=== PATIENT | male | born 1970 | race Caucasian/White ===

== ENCOUNTER 2018-09-03 16:44 | Observation (INO) ==
--- NOTE | 2018-09-03 17:20 | Emergency Department Note ---
Disposition Clinical Impression: Rectal bleeding Disposition: Admitted As Inpatient Condition: Good Time of Disposition: 19:13 General Adult HPI - General Chief complaint: ED GI Bleed Stated complaint: rectal bleeding Time Seen by Provider: 09/03/18 16:56 Source: patient, family Mode of arrival: ambulatory Limitations: no limitations Nursing Notes Reviewed: Yes Vital Signs Reviewed: Yes - History of Present Illness HPI Narrative: Patient is a 48-year-old presents the emergency department with reports of blood per rectum. Patient states that around 1400 today he was having a bowel movement and noticed a large amount of blood in the toilet. Patient states that it was bright red blood. Patient states that it was blood that ended up running down his legs to his feet. Patient states that he had 2 episodes of this. Patient states that he has feelings of lightheaded and dizziness. Patient states that he has had this one other time however he has not been seen for this. Patient states that it was short-lived and resolved. Patient states that he does have a history of hemorrhoids but has never been treated for them. Pain Scale: 2 - Related Data Home Medications Medication Instructions Recorded Confirmed Atenolol [Tenormin] 50 mg PO DAILY 07/14/15 07/14/15 BuPROPion [Wellbutrin] 450 mg PO DAILY 07/14/15 07/14/15 Cyclobenzaprine [Flexeril] 10 mg PO TID PRN 07/14/15 07/14/15 Diltiazem [Cardizem] 240 mg PO DAILY 07/14/15 07/14/15 Oxycodone HCl/Acetaminophen 1 each PO TID PRN 07/14/15 07/14/15 [Percocet 7.5-325 mg Tablet] Pantoprazole Sodium [Protonix] 20 mg PO DAILY 07/14/15 07/14/15 Previous Rx's Medication Instructions Recorded Ciprofloxacin [Cipro] 500 mg PO BID #20 tablet 01/13/18 Phenazopyridine HCl [Pyridium] 200 mg PO TIDAC #30 tab 01/13/18 Promethazine [Phenergan] 25 mg PO Q6HR PRN #15 tablet 01/13/18 Allergies Allergy/AdvReac Type Severity Reaction Status Date / Time No Known Allergies Allergy Verified 01/13/18 21:36 All systems ED: reviewed and negative except as stated. Cardiovascular: Denies: chest pain Respiratory: Denies: dyspnea Gastrointestinal: Denies: abdominal pain Neurological: Reports: other (Lightheaded ) Past Medical History - Past Medical History Medical history: Reports: diabetes, hypertension, other (Muscular Dystrophy) Surgical history: Reports: appendectomy Psychiatric history: Reports: depression - Social History Smoking Status: Never smoker Smokeless Tobacco Status: No Alcohol use: Reports: none Drug use: Reports: none Physical Exam - General Limitations: no limitations General appearance: alert, in no apparent distress - Head Head exam: atraumatic, normocephalic - Neck Neck exam: Present: normal inspection, full ROM, trachea midline - Respiratory Respiratory exam: Present: normal lung sounds bilaterally. Absent: respiratory distress, wheezes - Cardiovascular Cardiovascular exam: Present: regular rate, normal rhythm, normal heart sounds, +S1, +S2 - Abdominal Exam Abdominal exam: Present: soft, Non-Tender, normal bowel sounds - Rectal Exam Postmaster Relief present during exam: Yes Rectal exam: Present: normal inspection, normal rectal tone, hemorrhoids ( External non-bleeding ). Absent: bloody stool, fecal impaction, mass, tenderness - Neurological Exam Neurological exam: Present: alert, oriented X3 - Psychiatric Psychiatric exam: Present: normal affect, normal mood - Skin Skin exam: Present: warm, dry, intact Course Vital Signs Temperature 98.7 F 09/03/18 16:46 Pulse Rate 82 09/03/18 16:46 Respiratory Rate 20 09/03/18 16:46 Blood Pressure 149/82 09/03/18 16:46 O2 Sat by Pulse Oximetry 97 09/03/18 16:46 Temperature 98.9 F 09/03/18 17:03 Pulse Rate 85 09/03/18 17:03 Respiratory Rate 15 09/03/18 17:03 Blood Pressure 123/74 09/03/18 17:03 O2 Sat by Pulse Oximetry 99 09/03/18 17:03 Oxygen Delivery Oxygen Delivery Room Air Medical Decision Making - MDM Narrative Medical decision making narrative: Due the patient presenting to the emergency department with reports of rectal bleeding we will obtain basic laboratory testing a bedside stool occult and a type and screen. Patient seemed well but is stable at this time. [facility] laboratory testing is relatively unremarkable. The stool occult was positive. The patient does not have any active bleeding at this time and there is no gross blood on exam. However after discussion with the patient he is feeling uncomfortable with going home at this time due to the large amount of blood that he passed per rectum. I feel that it is reasonable for this patient to be admitted to the hospital for further evaluation and management of his rectal bleeding. Called spoke the admitting hospitalist Dr. Herrera and he is accepted the patient to their service. Patient be admitted to the hospital this time for further evaluation and management. - Medical Records Medical records reviewed: Yes I reviewed the patient's medical records. - Lab Data Lab results reviewed: Yes I reviewed the patient's lab results. Result diagrams: 09/03/18 17:33 09/03/18 17:33 Lab Results 09/03/18 09/03/18 09/03/18 Range/Units 17:15 17:33 17:33 WBC 4.3 (4.3-11.1) K/mcL RBC 4.83 (4.19-5.50) M/mcL Hgb 13.9 (12.9-16.9) g/dL Hct 39.2 (37.5-50.1) % MCV 81.2 L (83.0-100.0) fL MCH 28.8 (28.0-33.3) pg MCHC 35.5 (31.6-35.5) g/dL RDW 13.4 (11.5-14.5) % Plt Count 122 L (140-400) K/mcL MPV 9.6 (9.4-12.4) fL Immature Gran % 0.0 (0-4) % Seg Neutrophils % 61.6 % Lymphocytes % 25.8 % Monocytes % 8.4 % Eosinophils % 3.0 % Basophils % 1.2 % Neutrophils # 2.7 (1.6-8.9) K/mcL Lymphocytes # 1.1 (0.6-4.6) K/mcL Monocytes # 0.4 (0.0-1.3) K/mcL Eosinophils # 0.1 (0.0-0.6) K/mcL Basophils # 0.1 (0.0-0.2) K/mcL PT 15.1 H (9.4-12.1) Seconds INR 1.3 APTT 38.8 H (26.0-36.0) Seconds Sodium (136-145) mEq/L Potassium (3.5-5.1) mEq/L Chloride (98-107) mEq/L Carbon Dioxide (23-29) mEq/L BUN (6-20) mg/dL Creatinine (0.70-1.30) mg/dL Est GFR ( Amer) (> 60) Est GFR (Non-Af Amer) (> 60) BUN/Creatinine Ratio (6-26) Glucose (70-105) mg/dL Calculated Osmolality (280-300) Calcium (8.6-10.3) mg/dL Stool Occult Bld Scrn Positive A (Negative) Blood Type Antibody Screen 09/03/18 09/03/18 Range/Units 17:33 17:33 WBC (4.3-11.1) K/mcL RBC (4.19-5.50) M/mcL Hgb (12.9-16.9) g/dL Hct (37.5-50.1) % MCV (83.0-100.0) fL MCH (28.0-33.3) pg MCHC (31.6-35.5) g/dL RDW (11.5-14.5) % Plt Count (140-400) K/mcL MPV (9.4-12.4) fL Immature Gran % (0-4) % Seg Neutrophils % % Lymphocytes % % Monocytes % % Eosinophils % % Basophils % % Neutrophils # (1.6-8.9) K/mcL Lymphocytes # (0.6-4.6) K/mcL Monocytes # (0.0-1.3) K/mcL Eosinophils # (0.0-0.6) K/mcL Basophils # (0.0-0.2) K/mcL PT (9.4-12.1) Seconds INR APTT (26.0-36.0) Seconds Sodium 136 (136-145) mEq/L Potassium 3.5 (3.5-5.1) mEq/L Chloride 105 (98-107) mEq/L Carbon Dioxide 23 (23-29) mEq/L BUN 12 (6-20) mg/dL Creatinine 0.51 L (0.70-1.30) mg/dL Est GFR ( Amer) > 60 (> 60) Est GFR (Non-Af Amer) > 60 (> 60) BUN/Creatinine Ratio 24 (6-26) Glucose 276 H (70-105) mg/dL Calculated Osmolality 292 (280-300) Calcium 9.1 (8.6-10.3) mg/dL Stool Occult Bld Scrn (Negative) Blood Type A POSITIVE Antibody Screen NEGATIVE - Radiology Data Radiology results reviewed: Yes I reviewed the patient's radiology results. - EKG Data EKG #1 EKG attestation: Yes I reviewed and interpreted this EKG. EKG results narrative: EKG shows a sinus rhythm and rate of 70 beats from it, UT interval of 16 and contractures 101, QTC of 454. The shunt evidence of STEMI on EKG.
--- NOTE | 2018-09-03 17:31 | Emergency Department Note ---
Disposition Clinical Impression: Rectal bleeding Disposition: Admitted As Inpatient Condition: Good Referrals: Rod Sheth DO [Primary Care Provider] - Forms: ED Satisfaction Letter General Adult HPI - General Chief complaint: ED GI Bleed Stated complaint: rectal bleeding Time Seen by Provider: 09/03/18 16:56 Source: patient, family Mode of arrival: ambulatory Limitations: no limitations - History of Present Illness Pain Scale: 2 - Related Data Home Medications Medication Instructions Recorded Confirmed Atenolol [Tenormin] 50 mg PO DAILY 07/14/15 07/14/15 BuPROPion [Wellbutrin] 450 mg PO DAILY 07/14/15 07/14/15 Cyclobenzaprine [Flexeril] 10 mg PO TID PRN 07/14/15 07/14/15 Diltiazem [Cardizem] 240 mg PO DAILY 07/14/15 07/14/15 Oxycodone HCl/Acetaminophen 1 each PO TID PRN 07/14/15 07/14/15 [Percocet 7.5-325 mg Tablet] Pantoprazole Sodium [Protonix] 20 mg PO DAILY 07/14/15 07/14/15 Previous Rx's Medication Instructions Recorded Ciprofloxacin [Cipro] 500 mg PO BID #20 tablet 01/13/18 Phenazopyridine HCl [Pyridium] 200 mg PO TIDAC #30 tab 01/13/18 Promethazine [Phenergan] 25 mg PO Q6HR PRN #15 tablet 01/13/18 Allergies Allergy/AdvReac Type Severity Reaction Status Date / Time No Known Allergies Allergy Verified 01/13/18 21:36 Cardiovascular: Denies: chest pain Respiratory: Denies: dyspnea Gastrointestinal: Denies: abdominal pain Neurological: Reports: other (Lightheaded ) Past Medical History - Past Medical History Medical history: Reports: diabetes, hypertension, other (Muscular Dystrophy) Surgical history: Reports: appendectomy Psychiatric history: Reports: depression - Social History Smoking Status: Never smoker Smokeless Tobacco Status: No Alcohol use: Reports: none Drug use: Reports: none Physical Exam - General Limitations: no limitations General appearance: alert, in no apparent distress Course Vital Signs Temperature 98.7 F 09/03/18 16:46 Pulse Rate 82 09/03/18 16:46 Respiratory Rate 20 09/03/18 16:46 Blood Pressure 149/82 09/03/18 16:46 O2 Sat by Pulse Oximetry 97 09/03/18 16:46 Temperature 98.9 F 09/03/18 17:03 Pulse Rate 81 09/03/18 19:15 Respiratory Rate 18 09/03/18 19:15 Blood Pressure 118/69 09/03/18 19:15 O2 Sat by Pulse Oximetry 98 09/03/18 19:15 Oxygen Delivery Oxygen Delivery Room Air Medical Decision Making - Lab Data Result diagrams: 09/03/18 17:33 09/03/18 17:33 Lab Results 09/03/18 09/03/18 09/03/18 Range/Units 17:15 17:33 17:33 WBC 4.3 (4.3-11.1) K/mcL RBC 4.83 (4.19-5.50) M/mcL Hgb 13.9 (12.9-16.9) g/dL Hct 39.2 (37.5-50.1) % MCV 81.2 L (83.0-100.0) fL MCH 28.8 (28.0-33.3) pg MCHC 35.5 (31.6-35.5) g/dL RDW 13.4 (11.5-14.5) % Plt Count 122 L (140-400) K/mcL MPV 9.6 (9.4-12.4) fL Immature Gran % 0.0 (0-4) % Seg Neutrophils % 61.6 % Lymphocytes % 25.8 % Monocytes % 8.4 % Eosinophils % 3.0 % Basophils % 1.2 % Neutrophils # 2.7 (1.6-8.9) K/mcL Lymphocytes # 1.1 (0.6-4.6) K/mcL Monocytes # 0.4 (0.0-1.3) K/mcL Eosinophils # 0.1 (0.0-0.6) K/mcL Basophils # 0.1 (0.0-0.2) K/mcL PT 15.1 H (9.4-12.1) Seconds INR 1.3 APTT 38.8 H (26.0-36.0) Seconds Sodium (136-145) mEq/L Potassium (3.5-5.1) mEq/L Chloride (98-107) mEq/L Carbon Dioxide (23-29) mEq/L BUN (6-20) mg/dL Creatinine (0.70-1.30) mg/dL Est GFR ( Amer) (> 60) Est GFR (Non-Af Amer) (> 60) BUN/Creatinine Ratio (6-26) Glucose (70-105) mg/dL Calculated Osmolality (280-300) Calcium (8.6-10.3) mg/dL Stool Occult Bld Scrn Positive A (Negative) Blood Type Antibody Screen 09/03/18 09/03/18 Range/Units 17:33 17:33 WBC (4.3-11.1) K/mcL RBC (4.19-5.50) M/mcL Hgb (12.9-16.9) g/dL Hct (37.5-50.1) % MCV (83.0-100.0) fL MCH (28.0-33.3) pg MCHC (31.6-35.5) g/dL RDW (11.5-14.5) % Plt Count (140-400) K/mcL MPV (9.4-12.4) fL Immature Gran % (0-4) % Seg Neutrophils % % Lymphocytes % % Monocytes % % Eosinophils % % Basophils % % Neutrophils # (1.6-8.9) K/mcL Lymphocytes # (0.6-4.6) K/mcL Monocytes # (0.0-1.3) K/mcL Eosinophils # (0.0-0.6) K/mcL Basophils # (0.0-0.2) K/mcL PT (9.4-12.1) Seconds INR APTT (26.0-36.0) Seconds Sodium 136 (136-145) mEq/L Potassium 3.5 (3.5-5.1) mEq/L Chloride 105 (98-107) mEq/L Carbon Dioxide 23 (23-29) mEq/L BUN 12 (6-20) mg/dL Creatinine 0.51 L (0.70-1.30) mg/dL Est GFR ( Amer) > 60 (> 60) Est GFR (Non-Af Amer) > 60 (> 60) BUN/Creatinine Ratio 24 (6-26) Glucose 276 H (70-105) mg/dL Calculated Osmolality 292 (280-300) Calcium 9.1 (8.6-10.3) mg/dL Stool Occult Bld Scrn (Negative) Blood Type A POSITIVE Antibody Screen NEGATIVE Attestation Statement - Attestation Attestation: I examined this patient and my medical decision-making was reviewed with the Resident Physician. I agree with the documented findings, disposition and treatment plan as described except to the extent set forth below. Patient presents to the ED with a chief complaint of rectal bleeding. Onset this afternoon. Patient states it was a large amount of blood in the toilet. States he was running and is laying on the floor. No history of similar. 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 On exam he is awake and alert sitting up in bed in no acute distress. His abdomen is soft. Heart is regular. He is not tachycardic. Blood pressure stable. Plan. H&H. Type and cross. We will monitor. Patient's hemoglobin is 13. This is 1 g drop from the last check a couple days ago. Patient states he would prefer to be admitted as he is concern to go home with as much blood as he lost. Contacting hospitalist.
[2018-09-03 17:49] LABS: Basophils # 0.1 K/mcL (0.0-0.2); Basophils % 1.2 %; Eosinophils # 0.1 K/mcL (0.0-0.6); Hematocrit 39.2 % (37.5-50.1); Hemoglobin 13.9 g/dL (12.9-16.9); Lymphocytes # 1.1 K/mcL (0.6-4.6); Lymphocytes % 25.8 %; Mean Corpuscular HGB Conc 35.5 g/dL (31.6-35.5); Mean Corpuscular Hemoglobin 28.8 pg (28.0-33.3); Mean Corpuscular Volume 81.2 fL (83.0-100.0); Mean Platelet Volume 9.6 fL (9.4-12.4); Monocytes # 0.4 K/mcL (0.0-1.3); Monocytes % 8.4 %; Neutrophils # 2.7 K/mcL (1.6-8.9); Platelet Count 122 K/mcL (140-400); Red Blood Count 4.83 M/mcL (4.19-5.50); Red Cell Distribution Width 13.4 % (11.5-14.5); Segmented Neutrophils % 61.6 %
[2018-09-03 17:58] LABS: INR 1.3; Prothrombin Time 15.1 Seconds (9.4-12.1)
[2018-09-03 18:01] LABS: Activated Partial Thrombo Time 38.8 Seconds (26.0-36.0)
[2018-09-03 18:11] LABS: BUN/Creatinine Ratio 24 (6-26); Blood Urea Nitrogen 12 mg/dL (6-20); Calcium 9.1 mg/dL (8.6-10.3); Carbon Dioxide 23 mEq/L (23-29); Chloride 105 mEq/L (98-107); Glucose 276 mg/dL (70-105); Osmolality,Calculated 292 (280-300); Potassium 3.5 mEq/L (3.5-5.1); Sodium 136 mEq/L (136-145); eGFR For Non-African Americans > 60 (> 60)
[2018-09-03] MEDS ORDERED: Naloxone 0.4 MG/ML INJ IVP PRN (20:36)
[2018-09-03] MEDS ORDERED: *HR* Dextrose 50 % in Water (Syg) 50 ML SYRINGE IVP PRN (20:38)
[2018-09-03] MEDS ORDERED: D5% in Water 1,000 ML IVC PRN (20:38)
[2018-09-03] MEDS ORDERED: Dextrose Gel 15 GM/37.5 ML TUBE PO PRN ×2 (20:38)
--- NOTE | 2018-09-03 20:42 | Internal Med History&Physical ---
<Yosef Bueno - Last Filed: 09/03/18 21:53> Date of Encounter: 09/03/18 Time of Encounter: 20:40 Internal Medicine - H&P: HPI Chief complaint: Blood Bowel Movement Admitted From: Emergency Dept History of present illness: Mr. Frye is a 48 year old male presenting with 2 episodes of blood bowel movements today with history of muscular dystrophy, cardiomyopathy, HTN, DM. He was urinating around 2PM this afternoon when he felt blood dripping down his legs and realized it was blood. He then had a bowel movement filling the whole toilet bowl with blood. At 3 PM he defecated again filling the whole toilet bowl with blood. Blood is described as bright red with clots. He states that this happened 2 weeks ago but did not fill the toilet bowl with blood. Before that episode, he states bloody bowel movments are extremely rare. He had a colonscopy about 10 years ago to rule out crohn's disease. Patient at baseline has alternating diarrhea and constipation. Patient state he recently had constipation. Patient states after blood BMs he felt dizzy. He denies other symptoms including diarrhea, GI distress with abdominal pain or distension, recent travel, sick contacts, weight loss, decerased energy. He states he does not have a family history of colon cancer. Past Med Surg Social Fam HX - Past Medical History Medical history: diabetes, hypertension, other (Muscular Dystrophy) Additional medical history: MUSCULAR DYSTROPHY Psychiatric history: depression - Past Surgical History Surgical History: appendectomy - Social History Smoking Status: Never smoker Smokeless Tobacco Status: No Alcohol use: none Drug use: none - Family History Brother Hx Family Cardiac Disorders: Yes Internal Medicine - H&P: Meds Atenolol [Tenormin] 50 mg PO DAILY 07/14/15 [History] BuPROPion [Wellbutrin] 450 mg PO DAILY 07/14/15 [History] Cyclobenzaprine [Flexeril] 10 mg PO TID PRN 07/14/15 [History] Diltiazem [Cardizem] 240 mg PO DAILY 07/14/15 [History] Oxycodone HCl/Acetaminophen [Percocet 7.5-325 mg Tablet] 1 each PO TID PRN 07/14/15 [History] Pantoprazole Sodium [Protonix] 40 mg PO DAILY 07/14/15 [History] Metformin HCl [Metformin HCl ER] 1,000 mg PO QAM 09/03/18 [History] Metformin HCl [Metformin HCl ER] 500 mg PO HS 09/03/18 [History] Torsemide 10 mg PO DAILY 09/03/18 [History] Promethazine [Phenergan] 25 mg PO Q6HR PRN 09/04/18 [History] Allergy/AdvReac Type Severity Reaction Status Date / Time No Known Allergies Allergy Verified 01/13/18 21:36 All Systems PM: A 10-system review of systems was performed and is negative for pertinent findings except as documented above in the HPI. - Constitutional Constitutional: no fever(s), no weakness, no weight loss - EENT Nose, mouth and throat: no sore throat - Cardiovascular Cardiovascular ROS IM: no chest pain, no palpitations - Respiratory Respiratory: no cough, no dyspnea - Gastrointestinal Gastrointestinal: constipation, hematochezia, no abdominal pain, no bloating, no change in bowel habits, no change in stool character, no cramping, no diarrhea, no fecal incontinence, no melena, no vomiting - Genitourinary Genitourinary ROS male: no dysuria, no flank pain, no urinary frequency, no urinary hesitancy, no urinary incontinence, no urinary urgency - Hematologic/Lymphatic Hematologic/Lymphatic: no easy bleeding, no easy bruising - Constitutional Vitals: Temp Pulse Resp BP Pulse Ox 98.9 F 81 18 118/69 98 09/03/18 17:03 09/03/18 19:15 09/03/18 19:15 09/03/18 19:15 09/03/18 19:15 General appearance: Present: cooperative, A&O X 3, pleasant, no acute distress, answers questions appropriately Exam: . - Head Head exam: Present: atraumatic, normal inspection - Eye Eye exam: Present: EOMI, normal appearance - Neck Neck exam general surgery: Present: supple, trachea midline - Respiratory Respiratory exam: Present: CTAB. Absent: rales, rhonchi, wheezes - Cardiovascular Cardiovascular exam: Present: RRR, +S1, +S2 - GI/Abdominal GI/Abdominal exam: Present: hypoactive bowel sounds. Absent: distended, firm, mass, rebound, tenderness, no peritoneal signs - Extremities Exam Extremities exam: Present: normal capillary refill, warm. Absent: mottling - Back Exam Back exam: Present: normal inspection - Neurological Exam Neurological exam: Present: alert, oriented X3, no focal deficits - Psychiatric Psychiatric exam: Present: normal affect - Skin Skin exam: Present: dry, intact, normal color, warm Internal Med - H&P Results - Labs CBC & Chem 7: 09/03/18 17:33 09/03/18 17:33 Labs: Short CBC 09/03/18 Range/Units 17:33 WBC 4.3 (4.3-11.1) K/mcL Hgb 13.9 (12.9-16.9) g/dL Hct 39.2 (37.5-50.1) % Plt Count 122 L (140-400) K/mcL Neutrophils # 2.7 (1.6-8.9) K/mcL BMP 09/03/18 17:33 Sodium 136 Potassium 3.5 Chloride 105 Carbon Dioxide 23 BUN 12 Creatinine 0.51 L Glucose 276 H Calcium 9.1 - Assessment and plan (1) Rectal bleeding Current Visit: Yes Status: Acute Assessment and plan: 48 YO M presenting with 2 episodes of voluminous blood bright red stools. - Consulted surgeon potline monitor Dr. Nolan and he will see patient tomorrow morning. Will not do colonoscopy tomorrow due to inadequate time for bowel prep. Did not ask for any additional orders. - Patient's hemoglobin is normal at 13.8, last blood bowel movement was at 3PM. Scheduled follow up CBC to trend H/H for 10PM and 4AM. - Patient felt a little dizzy after bloody BMs, but his BP is stable around 120/80. Maintenance fluids for now. (2) Diabetes Current Visit: Yes Status: Acute Assessment and plan: Sliding scale. 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 Frye is a 48 year old male All Systems PM: A 10-system review of systems was performed and is negative for pertinent findings except as documented above in the HPI. - Constitutional Vitals: Temp Pulse Resp BP Pulse Ox 98.2 F 70 16 105/63 96 09/04/18 03:37 09/04/18 03:37 09/04/18 03:37 09/04/18 03:37 09/04/18 03:37 Internal Med - H&P Results - Labs CBC & Chem 7: 09/04/18 04:12 09/04/18 04:12 Labs: Short CBC 09/03/18 09/03/18 09/04/18 Range/Units 17:33 22:03 04:12 WBC 4.3 6.1 6.0 (4.3-11.1) K/mcL Hgb 13.9 14.5 13.0 D (12.9-16.9) g/dL Hct 39.2 42.6 38.6 (37.5-50.1) % Plt Count 122 L 145 119 L (140-400) K/mcL Neutrophils # 2.7 3.9 3.6 (1.6-8.9) K/mcL BMP 09/03/18 09/04/18 17:33 04:12 Sodium 136 134 L Potassium 3.5 3.3 L Chloride 105 104 Carbon Dioxide 23 23 BUN 12 13 Creatinine 0.51 L 0.41 L Glucose 276 H 180 H Calcium 9.1 8.4 L - Assessment and plan (1) Rectal bleeding Current Visit: Yes Status: Acute (2) Diabetes Current Visit: Yes Status: Acute Qualifiers: Diabetes mellitus type: type 2 Diabetes mellitus termite control technician insulin use: without termite control technician use Diabetes mellitus complication status: without complication Qualified Code(s): E11.9 - Type 2 diabetes mellitus without complications - Time Spent With Patient Total time spent is greater than 50% in coordination of care (as documented) at patient's floor/unit and/or counseling patient: - Attending Attestation I performed a history and physical examination of the patient and discussed his management with the resident. I reviewed the resident's note and agree with the documented findings and plan of care.
[2018-09-03] MEDS ORDERED: 0.9 % Sodium Chloride 1,000 ML IVC SCH (20:45)
[2018-09-03] MEDS: Insulin LISPRO 300 UNITS/3 ML VIAL SQ SCH (21:30)
[2018-09-03 22:31] LABS: Basophils # 0.1 K/mcL (0.0-0.2); Basophils % 0.8 %; Eosinophils # 0.2 K/mcL (0.0-0.6); Eosinophils % 2.8 %; Hematocrit 42.6 % (37.5-50.1); Hemoglobin 14.5 g/dL (12.9-16.9); Immature Granulocytes % 0.3 % (0-4); Lymphocytes # 1.5 K/mcL (0.6-4.6); Lymphocytes % 25.1 %; Mean Corpuscular Hemoglobin 27.8 pg (28.0-33.3); Mean Corpuscular Volume 81.8 fL (83.0-100.0); Monocytes # 0.4 K/mcL (0.0-1.3); Monocytes % 7.2 %; Neutrophils # 3.9 K/mcL (1.6-8.9); Platelet Count 145 K/mcL (140-400); Red Blood Count 5.21 M/mcL (4.19-5.50); Red Cell Distribution Width 13.3 % (11.5-14.5); Segmented Neutrophils % 63.8 %
[2018-09-04] MEDS ORDERED: *HR* OxyCODONE/APAP 7.5/325 TABLET PO PRN (02:23)
[2018-09-04 04:54] LABS: Basophils # 0.1 K/mcL (0.0-0.2); Basophils % 0.8 %; Eosinophils # 0.2 K/mcL (0.0-0.6); Eosinophils % 3.4 %; Hematocrit 38.6 % (37.5-50.1); Immature Granulocytes % 0.2 % (0-4); Lymphocytes # 1.7 K/mcL (0.6-4.6); Lymphocytes % 28.5 %; Mean Corpuscular HGB Conc 33.7 g/dL (31.6-35.5); Mean Corpuscular Hemoglobin 27.9 pg (28.0-33.3); Mean Corpuscular Volume 82.8 fL (83.0-100.0); Mean Platelet Volume 10.2 fL (9.4-12.4); Monocytes # 0.4 K/mcL (0.0-1.3); Monocytes % 6.5 %; Neutrophils # 3.6 K/mcL (1.6-8.9); Platelet Count 119 K/mcL (140-400); Red Blood Count 4.66 M/mcL (4.19-5.50); Red Cell Distribution Width 13.6 % (11.5-14.5); Segmented Neutrophils % 60.6 %
[2018-09-04 05:11] LABS: BUN/Creatinine Ratio 32 (6-26); Blood Urea Nitrogen 13 mg/dL (6-20); Calcium 8.4 mg/dL (8.6-10.3); Carbon Dioxide 23 mEq/L (23-29); Chloride 104 mEq/L (98-107); Glucose 180 mg/dL (70-105); Osmolality,Calculated 283 (280-300); Potassium 3.3 mEq/L (3.5-5.1); Sodium 134 mEq/L (136-145); eGFR For Non-African Americans > 60 (> 60)
--- NOTE | 2018-09-04 09:05 | General Surgery Consult Note ---
Date of Encounter: 09/04/18 Time of Encounter: 09:03 Assessment and Plan (1) Rectal bleeding Current Visit: Yes Status: Acute I informed the patient that after 12 hours of fluid resuscitation his hemoglobin level is relatively remain unchanged. Do not think he has any evidence of active bleeding and he actually may be having hemorrhoidal bleeding as opposed to bleeding elsewhere within the colon. I gave him the option of following up as an outpatient or proceeding with a bowel prep and perform the colonoscopy tomorrow. A third option which we will proceed with is to give him a bowel prep to drink today and follow-up with him later this afternoon to see if his bowel movements are brown in color or if they still remain bloody in nature. If they are brown in nature then we can set up for follow-up as an outpatient however if they are bloody then we will go ahead and proceed with the endoscopy procedure tomorrow. The patient agrees with the third option. History of Present Illness Consult date: 09/04/18 Reason for consult: other (Rectal bleeding) History of present illness: Patient is a 48-year-old male with a past medical history significant for muscular dystrophy who states that yesterday he had an episode of blood noted in his underwear and when sitting on the toilet having blood within the toilet followed by having a bowel movement with blood present. He states that the blood proceeded having the bowel movement. He denies any true history of diarrhea or constipation and admits to having a bowel movement once every other day. He knows he is had a history of hemorrhoids and he states he has had a history of rectal bleeding about 2-3 weeks ago but was not at the same level as it was yesterday. He denies any abdominal pain and denies any perianal pain as well. Past Med Surg Social Fam HX - Past Medical History Medical history: diabetes, hypertension, other Additional medical history: MUSCULAR DYSTROPHY Psychiatric history: depression - Past Surgical History Surgical History: cholecystectomy Additional surgical history: hernia removal. - Social History Smoking Status: Former smoker Smokeless Tobacco Status: No Alcohol use: none Drug use: none - Family History Brother Hx Family Cardiac Disorders: Yes Hx Family Respiratory Disorders: No Hx Family Cancer: No Hx Family GI Disorders: No Hx Family Genitourinary Disorders: No Hx Family Endocrine Disorder: No Hx Family Musculoskeletal Disorders: No Hx Family Neuromuscular Disorders: No Hx Family Neurologic Disorders: No Hx Family HEENT Disorders: No Hx Family Autoimmune Disorders: No Hx Family Reproductive Disorders: No Hx Family Psychosocial Disorders: No Hx Family Medical Disorders: No Medications and Allergies Atenolol [Tenormin] 50 mg PO DAILY 07/14/15 [History] BuPROPion [Wellbutrin] 450 mg PO DAILY 07/14/15 [History] Cyclobenzaprine [Flexeril] 10 mg PO TID PRN 07/14/15 [History] Diltiazem [Cardizem] 240 mg PO DAILY 07/14/15 [History] Oxycodone HCl/Acetaminophen [Percocet 7.5-325 mg Tablet] 1 each PO TID PRN 07/14/15 [History] Pantoprazole Sodium [Protonix] 40 mg PO DAILY 07/14/15 [History] Metformin HCl [Metformin HCl ER] 1,000 mg PO QAM 09/03/18 [History] Metformin HCl [Metformin HCl ER] 500 mg PO HS 09/03/18 [History] Torsemide 10 mg PO DAILY 09/03/18 [History] Promethazine [Phenergan] 25 mg PO Q6HR PRN 09/04/18 [History] Allergy/AdvReac Type Severity Reaction Status Date / Time No Known Allergies Allergy Verified 01/13/18 21:36 Review of Systems All systems PM: reviewed and no additional remarkable complaints except as stated All systems PM: The remainder of the systems were reviewed and are negative General Surgery Exam Initial Vital Signs Temp Pulse Resp BP Pulse Ox 98.7 F 82 20 149/82 97 09/03/18 16:46 09/03/18 16:46 09/03/18 16:46 09/03/18 16:46 09/03/18 16:46 - Eyes PERRL, normal ocular movement - Respiratory normal expansion, normal respiratory effort, clear to auscultation - Cardiovascular Cardiovascular exam: Present: RRR, no murmurs/rubs/gallops - Abdomen Abdomen general surgery: Present: bowel sounds present, soft, non tender - Rectum Hemorrhoids: Present: External (Noted external hemorrhoids nonthrombosed. Unable to appreciate evidence of internal hemorrhoids) - Neurologic Present: CN 2-12 grossly intact - Musculoskeletal Present: other (No clubbing or cyanosis. Evidence of chronic venous stasis changes present.) - Additional Findings Patient has evidence of a pilonidal cyst with a raised polypoid lesion in the left buttock above the level of the buttock cleft. There is a central opening along the midline approximately 4 cm to 5 cm inferior to the above-mentioned polypoid area. No active drainage. Exam Initial Vital Signs Temp Pulse Resp BP Pulse Ox 98.7 F 82 20 149/82 97 09/03/18 16:46 09/03/18 16:46 09/03/18 16:46 09/03/18 16:46 09/03/18 16:46 Results - Labs 09/04/18 04:12 09/04/18 04:12 Abnormal lab results MCV 82.8 fL (83.0-100.0) L 09/04/18 04:12 MCH 27.9 pg (28.0-33.3) L 09/04/18 04:12 Plt Count 119 K/mcL (140-400) L 09/04/18 04:12 PT 15.1 Seconds (9.4-12.1) H 09/03/18 17:33 APTT 38.8 Seconds (26.0-36.0) H 09/03/18 17:33 Sodium 134 mEq/L (136-145) L 09/04/18 04:12 Potassium 3.3 mEq/L (3.5-5.1) L 09/04/18 04:12 Creatinine 0.41 mg/dL (0.70-1.30) L 09/04/18 04:12 BUN/Creatinine Ratio 32 (6-26) H 09/04/18 04:12 Glucose 180 mg/dL (70-105) H 09/04/18 04:12 Calcium 8.4 mg/dL (8.6-10.3) L 09/04/18 04:12 Stool Occult Bld Scrn Positive (Negative) A 09/03/18 17:15 Diabetes panel 09/03/18 09/04/18 Range/Units 17:33 04:12 Sodium 136 134 L (136-145) mEq/L Potassium 3.5 3.3 L (3.5-5.1) mEq/L Chloride 105 104 (98-107) mEq/L Carbon Dioxide 23 23 (23-29) mEq/L BUN 12 13 (6-20) mg/dL Creatinine 0.51 L 0.41 L (0.70-1.30) mg/dL Glucose 276 H 180 H (70-105) mg/dL Calcium 9.1 8.4 L (8.6-10.3) mg/dL Calcium panel 09/03/18 09/04/18 Range/Units 17:33 04:12 Calcium 9.1 8.4 L (8.6-10.3) mg/dL Pituitary panel 09/03/18 09/04/18 Range/Units 17:33 04:12 Sodium 136 134 L (136-145) mEq/L Potassium 3.5 3.3 L (3.5-5.1) mEq/L Chloride 105 104 (98-107) mEq/L Carbon Dioxide 23 23 (23-29) mEq/L BUN 12 13 (6-20) mg/dL Creatinine 0.51 L 0.41 L (0.70-1.30) mg/dL Glucose 276 H 180 H (70-105) mg/dL Calcium 9.1 8.4 L (8.6-10.3) mg/dL Adrenal panel 09/03/18 09/04/18 Range/Units 17:33 04:12 Sodium 136 134 L (136-145) mEq/L Potassium 3.5 3.3 L (3.5-5.1) mEq/L Chloride 105 104 (98-107) mEq/L Carbon Dioxide 23 23 (23-29) mEq/L BUN 12 13 (6-20) mg/dL Creatinine 0.51 L 0.41 L (0.70-1.30) mg/dL Glucose 276 H 180 H (70-105) mg/dL Calcium 9.1 8.4 L (8.6-10.3) mg/dL All other labs normal. Consult Discharge Plan - Plan Referrals: Rod Sheth DO [Primary Care Provider] -
[2018-09-04] MEDS: Torsemide 20 MG TABLET PO SCH (09:23)
[2018-09-04] MEDS: Diltiazem CD (24hr) 240 MG CAPSULE PO SCH (09:23)
[2018-09-04] MEDS: BuPROPion XL (24 HR) 150 MG TABLET PO SCH (09:23)
--- NOTE | 2018-09-04 16:06 | Internal Med Progress Note ---
Hospitalist Progress Note - Encounter Date of Encounter: 09/04/18 Time of Encounter: 16:04 - Subjective Interval History: Seen and examined at bedside today. Continue to have bright red blood in stool with bowel movement. Although, he does report that the amount of blood is decreasing with each bowel movement. - Exam Vitals: Temp Pulse Resp BP Pulse Ox 98.9 F 81 16 111/68 96 09/04/18 15:25 09/04/18 15:25 09/04/18 15:25 09/04/18 15:25 09/04/18 15:25 Exam: PHYSICAL EXAMINATION: GENERAL: NAD, and O 3, obese HEENT: Head is normocephalic and atraumatic. EOMI, PERRLA NECK: Supple. No carotid bruits. No lymphadenopathy or thyromegaly. LUNGS: Clear to auscultation B/L AP and L. HEART: Regular rate and rhythm, S1, S2 without murmur. ABDOMEN: Soft, nontender, and nondistended. Hypoactive bowel sounds. No hepatosplenomegaly was noted. EXTREMITIES: Without any cyanosis, clubbing, rash, lesions or edema. SKIN: No ulceration or induration present. Skin tone appropriate for race - Assessment and Plan (1) Rectal bleeding Current Visit: Yes Status: Acute Assessment and Plan: 48 YO M presenting with 2 episodes of voluminous blood bright red stools. - Consulted surgeon construction management instructor Dr. Nolan and he will see patient tomorrow morning. Will not do colonoscopy tomorrow due to inadequate time for bowel prep. Did not ask for any additional orders. - Patient's hemoglobin is normal at 13.8, last blood bowel movement was at 3PM. Scheduled follow up CBC to trend H/H for 10PM and 4AM. - Patient felt a little dizzy after bloody BMs, but his BP is stable around 120/80. Maintenance fluids for now. 09/04--presents with concerns for GI bleed. Reporting multiple bowel movements with bright red blood. H&H remained stable. During my exam today the patient notes that he has had bloody bowel movements bright red blood this morning but that subsequent bowel movements have had less blood. Hemodynamically he remained stable. Repeat H&H and continue to monitor. He is currently receiving bowel prep for potential endoscopy procedure in the morning. Remain nothing by mouth (2) Diabetes Current Visit: Yes Status: Acute Assessment and Plan: Continue sliding scale insulin coverage AC/HS Accu-Chek and clear liquid - Time Spent with Patient Total time spent is greater than 50% in coordination of care (as documented) at patient's floor/unit and/or counseling patient: less than 15 minutes Plan of Care Discussed with: patient Internal Medicine: Result - Labs CBC & Chem 7: 09/04/18 04:12 09/04/18 04:12 Labs: Short CBC 09/03/18 09/03/18 09/04/18 Range/Units 17:33 22:03 04:12 WBC 4.3 6.1 6.0 (4.3-11.1) K/mcL Hgb 13.9 14.5 13.0 D (12.9-16.9) g/dL Hct 39.2 42.6 38.6 (37.5-50.1) % Plt Count 122 L 145 119 L (140-400) K/mcL Neutrophils # 2.7 3.9 3.6 (1.6-8.9) K/mcL BMP 09/03/18 09/04/18 17:33 04:12 Sodium 136 134 L Potassium 3.5 3.3 L Chloride 105 104 Carbon Dioxide 23 23 BUN 12 13 Creatinine 0.51 L 0.41 L Glucose 276 H 180 H Calcium 9.1 8.4 L - ABG Interpretation ABG results: PT/INR, D-dimer PT 15.1 Seconds (9.4-12.1) H 09/03/18 17:33 Consult Discharge Plan - Plan Referrals: Rod Sheth DO [Primary Care Provider] - (2) Diabetes Qualifiers: Diabetes mellitus type: type 2 Diabetes mellitus residential insulin use: without residential use Diabetes mellitus complication status: without complication Qualified Code(s): E11.9 - Type 2 diabetes mellitus without complications
--- NOTE | 2018-09-04 16:36 | Event Note ---
Date of Encounter: 09/04/18 Time of Encounter: 16:35 Reevaluate patient. He states that he did have 2 bowel movements; the first one was bright red and the second one still had blood and was solid. Will go ahead and plan for formal colonoscopy tomorrow afternoon. Discussed with the patient he agrees with the above plan.
[2018-09-04 16:56] LABS: Hematocrit 41.4 % (37.5-50.1); Hemoglobin 14.3 g/dL (12.9-16.9)
[2018-09-04] MEDS: Insulin LISPRO 300 UNITS/3 ML VIAL SQ SCH ×3 (17:37→20:46)
[2018-09-05 05:32] LABS: Basophils % 0.9 %; Eosinophils # 0.1 K/mcL (0.0-0.6); Hematocrit 37.8 % (37.5-50.1); Hemoglobin 12.9 g/dL (12.9-16.9); Immature Granulocytes % 0.4 % (0-4); Lymphocytes # 1.5 K/mcL (0.6-4.6); Lymphocytes % 31.5 %; Mean Corpuscular HGB Conc 34.1 g/dL (31.6-35.5); Monocytes # 0.4 K/mcL (0.0-1.3); Monocytes % 8.5 %; Neutrophils # 2.6 K/mcL (1.6-8.9); Platelet Count 120 K/mcL (140-400); Red Blood Count 4.61 M/mcL (4.19-5.50); Red Cell Distribution Width 13.3 % (11.5-14.5); Segmented Neutrophils % 55.7 %
[2018-09-05 05:51] LABS: BUN/Creatinine Ratio 17 (6-26); Blood Urea Nitrogen 6 mg/dL (6-20); Calcium 8.6 mg/dL (8.6-10.3); Carbon Dioxide 23 mEq/L (23-29); Chloride 105 mEq/L (98-107); Glucose 185 mg/dL (70-105); Osmolality,Calculated 284 (280-300); Potassium 2.8 mEq/L (3.5-5.1); Sodium 136 mEq/L (136-145); eGFR For Non-African Americans > 60 (> 60)
[2018-09-05] MEDS: Insulin LISPRO 300 UNITS/3 ML VIAL SQ SCH ×2 (08:35→12:17)
[2018-09-05] MEDS: BuPROPion XL (24 HR) 150 MG TABLET PO SCH (08:43)
[2018-09-05] MEDS: Torsemide 20 MG TABLET PO SCH ×2 (08:44→08:47)
[2018-09-05] MEDS: Diltiazem CD (24hr) 240 MG CAPSULE PO SCH (08:44)
--- NOTE | 2018-09-05 09:20 | Anesthesia Evaluation PreOp ---
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) Other Medical History: Diabetes Type II, GERD Anesthesia History: No Prior Anesthetic Complications, Past Anesthesia Alcohol Use: occasionally Drug use: none Medications and Allergies Atenolol [Tenormin] 50 mg PO DAILY 07/14/15 [History] Cyclobenzaprine [Flexeril] 10 mg PO TID PRN 07/14/15 [History] Diltiazem [Cardizem] 240 mg PO DAILY 07/14/15 [History] Pantoprazole Sodium [Protonix] 40 mg PO DAILY 07/14/15 [History] Metformin HCl [Metformin HCl ER] 1,000 mg PO BID 09/03/18 [History] Torsemide [Demadex] 10 mg PO DAILY PRN 09/03/18 [History] Oxycodone HCl/Acetaminophen [Percocet 5-325 mg Tablet] 1 tab PO Q12H PRN 09/04/18 [History] Promethazine [Phenergan] 25 mg PO Q6HR PRN 09/04/18 [History] Sertraline [Zoloft] 25 mg PO DAILY 09/04/18 [History] buPROPion HCl [Bupropion Xl] 450 mg PO DAILY 09/04/18 [History] Allergy/AdvReac Type Severity Reaction Status Date / Time No Known Allergies Allergy Verified 01/13/18 21:36 - Meds/Allergy Pre-op Review Medications Reviewed: Yes Allergies Reviewed: Yes Beta Blockers on Current Med List: Yes If Beta Blockers taken, Date/Time (Last Dose taken): 09/05/2018 at 0844 Anesthesia Results - Labs 09/05/18 04:36 09/05/18 04:36 - Imaging EKG: report reviewed (04/09/2017 SINUS RHYTHM MODERATE VOLTAGE CRITERIA FOR LVH) Additional studies: 07/15/2015 Stress Impression: Pharmacologic stress ECG is negative for ischemia at level of heart rate achieved. No arrhythmias were noted during stress. Occasional PVCs during recovery. Gated EF = 50%. There is a moderate intensity, fixed distal inferolateral defect c/w artifact. This study was negative for ischemia or infarct. Anesthesia Exam Vital Signs/O2 Sat/Glucose, Most Recent Temp Pulse Resp BP Pulse Ox 97.8 F 91 16 126/74 97 09/05/18 07:31 09/05/18 07:31 09/05/18 07:31 09/05/18 07:31 09/05/18 08:53 Blood Glucose* 137 Height: 5'11''/1.8m Weight: 257 lbs/117 kg NPO (# of Hours): 8 Pain Scale: 0 Pain Scale Used: Numeric (1 - 10) - HEENT Pupil (Motor): EOMI Mallampati: III Teeth: Normal Oral Opening: Greater than 3 - NETWORK CONTROL SUPERVISOR LOC: Oriented NETWORK CONTROL SUPERVISOR Motor: Normal Face, Deficit RUE (muscular dystrophy), Deficit LUE (muscular dystrophy), Deficit RLE (muscular dystrophy), Deficit LLE (muscular dystrophy) NETWORK CONTROL SUPERVISOR Sensory: Normal: RUE, LUE, RLE, LLE, Face - Cardiac Rhythm: Regular Murmur: None - Pulmonary Breath Sounds: bilateral Clear Respiratory Effort: Symmetrical Anesthesia Assess/Plan ASA Score: 3 Level of consciousness: Cooperative, Oriented, Tranquil Anesthetic Plan: MAC Monitoring Plan: Standard Monitors
[2018-09-05] MEDS ORDERED: 0.9 % Sodium Chloride 500 ML IVC SCH (10:45)
[2018-09-05] MEDS ORDERED: *HR* Propofol 200 MG/20 ML VIAL IVP ONE (11:10)
[2018-09-05] MEDS ORDERED: *HR* Phenylephrine 10 MG/ML VIAL ONE (11:10)
--- NOTE | 2018-09-05 11:15 | Event Note ---
Date of Encounter: 09/05/18 Time of Encounter: 11:13 Colonoscopy performed. Noted moderate sized hemorrhoids. Polyp noted in the proximal descending colon (12mm). Removed via snare. Polyp noted in the cecum (7mm). Removed via snare. No active bleeding. Will follow up with the patient as an outpatient (we will contact the patient for an appointment). Will sign off; thank you.
--- NOTE | 2018-09-05 13:32 | Discharge Summary ---
- NOTES TO OUTPATIENT PROVIDER Notes to Outpatient Provider: Admitted with rectal bleeding. Colonoscopic evaluation reveals moderate sized hemorrhoids. Polyp noted in the proximal descending colon (12mm). Removed via snare. No active bleeding. Polyp sent for biopsy. Hemoglobin and hematocrit remains stable. Orders not resulted at time of discharge: Pending orders 09/05/18 11:07 Surgical Pathology [PTH] Routine 09/06/18 04:00 Basic Metabolic Panel AM 0400 Complete Blood Count [HEME] AM 0400 09/07/18 04:00 Basic Metabolic Panel AM 0400 Complete Blood Count [HEME] AM 0400 Date of Encounter: 09/05/18 Time of Encounter: 13:31 - Discharge Diagnosis (1) Rectal bleeding Priority: Primary Status: Resolved (2) Diabetes Priority: Secondary Status: Chronic Qualifiers: Diabetes mellitus type: type 2 Diabetes mellitus mcfp insulin use: without mcfp use Diabetes mellitus complication status: without complication Qualified Code(s): E11.9 - Type 2 diabetes mellitus without complications Hospital course: Mr. Frye is a 48 year old male Admitted with rectal bleeding. Colonoscopic evaluation reveals moderate sized hemorrhoids. Polyp noted in the proximal descending colon (12mm). Removed via snare. No active bleeding. Polyp sent for biopsy. Hemoglobin and hematocrit remains stable. Bleeding resolved. Outpatient f/u with Dr. Nolan. F/u with PCP in 1 -week Discharge discussed with: patient, nurse - Time Spent with Patient Total time spent providing and/or coordinating discharge services: Less than 30 minutes - Discharge Medications Home Medications: Atenolol [Tenormin] 50 mg PO DAILY 07/14/15 [History] Cyclobenzaprine [Flexeril] 10 mg PO TID PRN 07/14/15 [History] Diltiazem [Cardizem] 240 mg PO DAILY 07/14/15 [History] Pantoprazole Sodium [Protonix] 40 mg PO DAILY 07/14/15 [History] Metformin HCl [Metformin HCl ER] 1,000 mg PO BID 09/03/18 [History] Torsemide [Demadex] 10 mg PO DAILY PRN 09/03/18 [History] Oxycodone HCl/Acetaminophen [Percocet 5-325 mg Tablet] 1 tab PO Q12H PRN 09/04/18 [History] Promethazine [Phenergan] 25 mg PO Q6HR PRN 09/04/18 [History] Sertraline [Zoloft] 25 mg PO DAILY 09/04/18 [History] buPROPion HCl [Bupropion Xl] 450 mg PO DAILY 09/04/18 [History] Allergies/Adverse Reactions: Allergy/AdvReac Type Severity Reaction Status Date / Time No Known Allergies Allergy Verified 01/13/18 21:36 Date of admission: 09/03/18 19:40 Primary care physician: Rod Sheth DO Consults: 09/03/18 20:32 Consult to Surgery [CONS] Stat Consulting Provider: [facility] Reason for Consult: Bloody stools Time Notified: 20:32 Call Completed: Yes Discharging clinician: Willian Dyer Anticipated date of discharge: 09/05/18 - Constitutional Vitals: Temp Pulse Resp BP Pulse Ox 98.5 F 80 15 106/68 96 09/05/18 11:34 09/05/18 12:15 09/05/18 12:15 09/05/18 12:15 09/05/18 12:15 General appearance: Present: cooperative, A&O X 3, pleasant, no acute distress, answers questions appropriately Exam: PHYSICAL EXAMINATION: GENERAL: NAD, and O 3, obese HEENT: Head is normocephalic and atraumatic. EOMI, PERRLA NECK: Supple. No carotid bruits. No lymphadenopathy or thyromegaly. LUNGS: Clear to auscultation B/L AP and L. HEART: RRR, S1, S2 without murmur. ABDOMEN: Soft, nontender, and nondistended. Hypoactive bowel sounds. No hepatosplenomegaly was noted. EXTREMITIES: Without any cyanosis, clubbing, rash, lesions or edema. SKIN: No ulceration or induration present. Skin tone appropriate for race - Patient Status Disposition: Home, Self-Care Condition: Good Overall status at discharge: patient is back to baseline - Discharge Instructions Instructions: Chest Pain (DC), Chronic Hypertension (DC) Follow Up With: Rod Sheth DO [Primary Care Provider] - 09/12/18 3:20 pm - Diet and Activity Activity: increase activity as tolerated, resume usual activities as tolerated Diet: diabetic diet, low fat, low cholesterol, low salt diet
[2018-09-05 14:12] VITALS: BP 104/67
--- NOTE | 2018-09-05 16:30 | Electrocardiograph Report ---
[address] [address] Test Date: 2018-09-03 Pat Name: Desean Frye Department: EXAM1 Room: 3B37 Gender: M Health Care Administrator: : 1970 Requested By: Les Olsen Order Number: [id number] Reading MD: Raquel Roque Measurements Intervals Rex Rate: 79 P: 31 NV: 169 QRS: -2 QRSD: 101 T: 20 QT: 396 QTc: 454 Interpretive Statements Sinus rhythm Abnormal R-wave progression, early transition Left ventricular hypertrophy Electronically Signed On 09-05-2018 16:28:32 EST by Raquel Roque
== END 2018-09-05 16:00 | disposition home or self-care (01) ==
LOC: 3BNU 16:44 → EMEROOARM 16:44 → 3BNU 21:12
PROVIDERS: ADMIT Internal Medicine Cardiovascular Disease; ATTEND Internal Medicine Cardiovascular Disease

== ENCOUNTER 2018-12-17 19:47 | Observation (INO) ==
--- NOTE | 2018-12-17 20:39 | Emergency Department Note ---
Disposition Clinical Impression: Intermittent palpitations Chest pain Qualifiers: Chest pain type: unspecified Qualified Code(s): R07.9 - Chest pain, unspecified Disposition: Admitted As Inpatient Condition: Good Instructions: Palpitations (ED) Referrals: Paresh Valencia MD [Non-Partnered Physician] - Forms: ED Satisfaction Letter General Adult HPI - General Chief complaint: ED Chest Pain Stated complaint: Afib Time Seen by Provider: 12/17/18 19:56 Source: patient, EMS Mode of arrival: EMS Limitations: no limitations Nursing Notes Reviewed: Yes Vital Signs Reviewed: Yes - History of Present Illness HPI Narrative: Pt is a 48M with Pmhx of DM, silva muscular dystrophy, and atrial fibrillation that states that he feels like he has "been in A fib" since Wednesday and today started to feel like he was short of breath. He states that he used to follow with cardiology here, but his signal helper left and he has not seen anyone since then. He also notes that he is on atenolol to control his rate, but does not take any blood thinners. Additionally, he believes that his sugar is a little out of control and he only takes metformin and needs to schedule an appointment with an crop nutrition scientist. He endorses some mild left-sided chest pain, and the fe eling that his heart is "fluttering" in his chest. He denies fevers/chills, abd pain, n/v/d, constipation, numbness or tingling, diaphoresis, headache. Pain Scale: 3 - Related Data Home Medications Medication Instructions Recorded Confirmed Atenolol [Tenormin] 50 mg PO DAILY 07/14/15 09/04/18 Cyclobenzaprine [Flexeril] 10 mg PO TID PRN 07/14/15 09/04/18 Diltiazem [Cardizem] 240 mg PO DAILY 07/14/15 09/04/18 Pantoprazole Sodium [Protonix] 40 mg PO DAILY 07/14/15 09/04/18 Metformin HCl [Metformin ER 1,000 mg PO BID 09/03/18 09/04/18 Gastric] Torsemide [Demadex] 10 mg PO DAILY PRN 09/03/18 09/04/18 Oxycodone HCl/Acetaminophen 1 tab PO Q12H PRN 09/04/18 09/04/18 [Percocet 5-325 mg Tablet] Promethazine [Phenergan] 25 mg PO Q6HR PRN 09/04/18 09/04/18 Sertraline [Zoloft] 25 mg PO DAILY 09/04/18 09/04/18 buPROPion HCl [Bupropion Xl] 450 mg PO DAILY 09/04/18 09/04/18 Allergies Allergy/AdvReac Type Severity Reaction Status Date / Time No Known Allergies Allergy Verified 01/13/18 21:36 Constitutional: Denies: fever, chills Eyes: Denies: eye pain ENT ED: Denies: ear pain, throat pain Cardiovascular: Reports: chest pain (mild, left sided), palpitations, dyspnea on exertion Respiratory: Reports: cough, dyspnea. Denies: wheezes, hemoptysis Gastrointestinal: Denies: abdominal pain, nausea, vomiting, diarrhea, constip ation Genitourinary: Denies: urgency, dysuria Musculoskeletal: Denies: back pain, neck pain Integumentary: Denies: rash, abrasion Neurological: Reports: weakness (from underlying muscular dystrophy). Denies: headache Psychiatric: Denies: anxiety, depression Endocrine: Denies: fatigue, heat or cold intolerance Hematological/Lymphatic: Denies: easy bleeding, easy bruising Allergic/Immunologic: Denies: facial swelling, urticaria Past Medical History - Past Medical History Medical history: Reports: diabetes, hypertension, other Surgical history: Reports: cholecystectomy Psychiatric history: Reports: depression - Social History Smoking Status: Never smoker Smokeless Tobacco Status: No Alcohol use: Reports: occasionally Drug use: Reports: none Physical Exam - General Limitations: no limitations, language barrier General appearance: alert, in no apparent distress - Head Head exam: atraumatic, normocephalic - Eye Eye exam: Present: normal appearance, PERRL, EOMI - ENT ENT exam: normal exam, normal oropharynx - Neck Neck exam: Present: normal inspection, full ROM - Chest Chest inspection: Present: normal inspection, symmetric chest wall rise - Respiratory Respiratory exam: Present: normal lung sounds bilaterally. Absent: respiratory distress, wheezes - Cardiovascular Cardiovascular exam: Present: regular rate, normal rhythm, normal heart sounds - Abdominal Exam Abdominal exam: Present: soft, Non-Tender - Expanded Lower Extremity Exam Hip/Pelvis exam: Present: normal inspection, full ROM - Back Exam Back exam: Present: normal inspection, full ROM - Neurological Exam Neurological exam: Present: alert, oriented X3 - Psychiatric Psychiatric exam: Present: normal affect, normal mood - Skin Skin exam: Present: warm, dry, intact Course Course Narrative: Pt is not currently on any anti-coagulation despite diagnosis of afib. Will get EKG, CXR, blood work to include CBC, BMP, troponin. - Reevaluation(s) Reevaluation #1: On reevaluation of the patient. Patient states there feels like there is a small person sitting on his chest. Patient states associated dizziness with exertion as well as shortness of breath has been significantly worse over the last day. Given the patient's chest pain, shortness of breath, associated dizziness with exertion patient will undergo further admission for cardiac testing. Vital Signs Temperature 98.2 F 12/17/18 19:52 Pulse Rate 85 12/17/18 19:52 Respiratory Rate 18 12/17/18 19:52 Blood Pressure 135/82 12/17/18 19:52 O2 Sat by Pulse Oximetry 100 12/17/18 19:52 Temperature 98.2 F 12/17/18 19:52 Pulse Rate 85 12/17/18 19:52 Respiratory Rate 18 12/17/18 19:52 Blood Pressure 135/82 12/17/18 19:52 O2 Sat by Pulse Oximetry 100 12/17/18 19:52 Oxygen Delivery Oxygen Delivery Room Air Medical Decision Making - MDM Narrative Medical decision making narrative: EKG showed PVCs but no ST elevation or depression. While patient was being monitored he said "there, right there." and there was a PVC on the monitor at this time. Believe that his "a fib" is really PVCs. There are no records that show him ever being in Afib, and there are previous EKGs in the system showing NSR. Pt's troponin was negative and the rest of his lab work was unremarkable. - Medical Records Medical records reviewed: Yes I reviewed the patient's medical records. - Lab Data Lab results reviewed: Yes I reviewed the patient's lab results. Result diagrams: 12/17/18 20:35 12/17/18 20:35 Lab Results 12/17/18 12/17/18 12/17/18 Range/Units 20:35 20:35 20:35 WBC 4.4 (4.3-11.1) K/mcL RBC 5.10 (4.19-5.50) M/mcL Hgb 12.9 (12.9-16.9) g/dL Hct 38.5 (37.5-50.1) % MCV 75.5 L (83.0-100.0) fL MCH 25.3 L (28.0-33.3) pg MCHC 33.5 (31.6-35.5) g/dL RDW 15.2 H (11.5-14.5) % Plt Count 128 L (140-400) K/mcL MPV 9.4 (9.4-12.4) fL Immature Gran % 0.0 (0-4) % Seg Neutrophils % 63.1 % Lymphocytes % 26.1 % Monocytes % 6.9 % Eosinophils % 3.2 % Basophils % 0.7 % Neutrophils # 2.8 (1.6-8.9) K/mcL Lymphocytes # 1.1 (0.6-4.6) K/mcL Monocytes # 0.3 (0.0-1.3) K/mcL Eosinophils # 0.1 (0.0-0.6) K/mcL Basophils # 0.0 (0.0-0.2) K/mcL PT 15.6 H (9.4-12.1) Seconds INR 1.4 APTT 40.0 H (26.0-36.0) Seconds Sodium (136-145) mEq/L Potassium (3.5-5.1) mEq/L Chloride (98-107) mEq/L Carbon Dioxide (23-29) mEq/L BUN (6-20) mg/dL Creatinine (0.70-1.30) mg/dL Est GFR ( Amer) (> 60) Est GFR (Non-Af Amer) (> 60) BUN/Creatinine Ratio (6-26) Glucose (70-105) mg/dL Calculated Osmolality (280-300) Calcium (8.6-10.3) mg/dL Magnesium (1.6-2.6) mg/dL Troponin I (< 0.04) ng/mL B-Natriuretic Peptide 124 H (Less than 100) pg/mL 12/17/18 Range/Units 20:35 WBC (4.3-11.1) K/mcL RBC (4.19-5.50) M/mcL Hgb (12.9-16.9) g/dL Hct (37.5-50.1) % MCV (83.0-100.0) fL MCH (28.0-33.3) pg MCHC (31.6-35.5) g/dL RDW (11.5-14.5) % Plt Count (140-400) K/mcL MPV (9.4-12.4) fL Immature Gran % (0-4) % Seg Neutrophils % % Lymphocytes % % Monocytes % % Eosinophils % % Basophils % % Neutrophils # (1.6-8.9) K/mcL Lymphocytes # (0.6-4.6) K/mcL Monocytes # (0.0-1.3) K/mcL Eosinophils # (0.0-0.6) K/mcL Basophils # (0.0-0.2) K/mcL PT (9.4-12.1) Seconds INR APTT (26.0-36.0) Seconds Sodium 138 (136-145) mEq/L Potassium 3.8 (3.5-5.1) mEq/L Chloride 107 (98-107) mEq/L Carbon Dioxide 23 (23-29) mEq/L BUN 10 (6-20) mg/dL Creatinine 0.40 L (0.70-1.30) mg/dL Est GFR ( Amer) > 60 (> 60) Est GFR (Non-Af Amer) > 60 (> 60) BUN/Creatinine Ratio 25 (6-26) Glucose 193 H (70-105) mg/dL Calculated Osmolality 290 (280-300) Calcium 9.3 (8.6-10.3) mg/dL Magnesium 2.0 (1.6-2.6) mg/dL Troponin I < 0.03 (< 0.04) ng/mL B-Natriuretic Peptide (Less than 100) pg/mL - Radiology Data Radiology results reviewed: Yes I reviewed the patient's radiology results. Chest X-Ray 12/17/18 19:56 IMPRESSION: No acute abnormality identified. D/ / Darinel Mack MD / Darinel Mack MD Interpreting Provider: Darinel Mack MD - EKG Data EKG #1 EKG attestation: Yes I reviewed and interpreted this EKG. EKG results narrative: HR 88, rhythm sinus with ventricular PVCs every third beat, axis normal. CA 164. QRS 97. QTc 474. No evidence of ST elevation or depression. PVCs not present on comparison EKG from 09/03/18 Attestation Statement - Attestation Attestation: Resident Attestation: I examined this patient and my medical decision making was reviewed with the Resident Physician. I agree with the documented findings, disposition and treatment plan as described except to the extent set forth below. We independently had [id number] contact with the patient. patient with reported history of A. fib but no documented history. Not on anticoagulation with also history of muscular dystrophy presenting to the emergency department for evaluation of what he describes as palpitations. Patient underwent workup for palpitations within the emergency department which showed EKG concerning for trigeminy. Otherwise unremarkable. On reevaluation of patient he states that his chest pressure, which she did not initially describe, is getting better. He described it as a person sitting on his chest. He described exertional dyspnea as well as exertional dizziness. Patient without recent cardiac evaluation. Patient be admitted for further cardiac testing. No acute distress, resting in bed, regular rhythm, clear to auscultation bilaterally, abdomen soft nontender to palpation without guarding or rebound.
[2018-12-17 20:50] LABS: Basophils % 0.7 %; Eosinophils # 0.1 K/mcL (0.0-0.6); Eosinophils % 3.2 %; Hematocrit 38.5 % (37.5-50.1); Hemoglobin 12.9 g/dL (12.9-16.9); Lymphocytes # 1.1 K/mcL (0.6-4.6); Lymphocytes % 26.1 %; Mean Corpuscular HGB Conc 33.5 g/dL (31.6-35.5); Mean Corpuscular Hemoglobin 25.3 pg (28.0-33.3); Mean Corpuscular Volume 75.5 fL (83.0-100.0); Mean Platelet Volume 9.4 fL (9.4-12.4); Monocytes # 0.3 K/mcL (0.0-1.3); Monocytes % 6.9 %; Neutrophils # 2.8 K/mcL (1.6-8.9); Platelet Count 128 K/mcL (140-400); Red Cell Distribution Width 15.2 % (11.5-14.5); Segmented Neutrophils % 63.1 %
[2018-12-17 20:58] LABS: INR 1.4; Prothrombin Time 15.6 Seconds (9.4-12.1)
[2018-12-17 21:18] LABS: BUN/Creatinine Ratio 25 (6-26); Blood Urea Nitrogen 10 mg/dL (6-20); Calcium 9.3 mg/dL (8.6-10.3); Carbon Dioxide 23 mEq/L (23-29); Chloride 107 mEq/L (98-107); Glucose 193 mg/dL (70-105); Osmolality,Calculated 290 (280-300); Potassium 3.8 mEq/L (3.5-5.1); Sodium 138 mEq/L (136-145); eGFR For Non-African Americans > 60 (> 60)
[2018-12-17 21:19] LABS: Troponin I < 0.03 ng/mL (< 0.04)
[2018-12-17 21:31] LABS: Thyroid Stimulating Hormone 1.594 mcIU/mL (0.340-5.600)
[2018-12-17] MEDS ORDERED: Naloxone 0.4 MG/ML INJ IVP PRN (22:01)
[2018-12-17] MEDS ORDERED: traMADol 50 MG TABLET PO PRN (22:01)
[2018-12-17] MEDS ORDERED: Ondansetron 4 MG/2 ML VIAL IVP PRN (22:01)
[2018-12-17] MEDS ORDERED: Acetaminophen 325 MG TABLET PO PRN (22:01)
[2018-12-17] MEDS ORDERED: MOM Conc 10 ML UD.LIQ PO PRN (22:01)
[2018-12-17] MEDS ORDERED: Mag Hydrox/Al Hydrox/Simeth 30 ML UDC PO PRN (22:01)
[2018-12-17] MEDS ORDERED: Dextrose Gel 15 GM/37.5 ML TUBE PO PRN ×2 (22:06)
[2018-12-17] MEDS ORDERED: *HR* Dextrose 50 % in Water (Syg) 50 ML SYRINGE IVP PRN (22:06)
[2018-12-17] MEDS ORDERED: D5% in Water 1,000 ML IVC PRN (22:06)
--- NOTE | 2018-12-17 22:15 | Internal Med History&Physical ---
Date of Encounter: 12/17/18 Time of Encounter: 22:08 Internal Medicine - H&P: HPI Admitted From: Home Plans for Post Hospital Care: Home History of present illness: Mr. Frye is a 48 year old male with Pmhx of DM, macdonald muscular dystrophy, and atrial fibrillation that states that he feels like he has "been in A fib" since Wednesday and today started to feel like he was short of breath. He states that he used to follow with cardiology here, but his analyst competitive intelligence left and he has not seen anyone for more than a year. He also notes that he is on atenolol to control his rate, but does not take any blood thinners. Additionally, he believes that his sugar is a little out of control and he only takes metformin and needs to schedule an appointment with an personnel interviewer. He endorses some mild left-sided chest pain, and the feeling that his heart is "fluttering" in his chest with associated lightheadedness. He has family hx of Macdonald muscular dystrophy and one brother was currently on heart transplant waiting list. His legs were affected and he cannot walk more than 50 yards before taking a break. He also has chronic leg swelling and on diuretics. But he denies PND. He denies fevers/chills, abd pain, n/v/d, constipation, numbness or tingling, diaphoresis, headache. In the ED, his vitals were stable and tele showed SR with frequent PACs. Labs showed elevated BG and slightly elevated BNP. CXR was normal. He was admitted for chest pain. He will be Full Code. Past Med Surg Social Fam HX - Past Medical History Medical history: diabetes, hypertension, other Additional medical history: MUSCULAR DYSTROPHY Psychiatric history: depression - Past Surgical History Surgical History: cholecystectomy Additional surgical history: hernia removal. - Social History Smoking Status: Never smoker Smokeless Tobacco Status: No Alcohol use: occasionally Drug use: none - Family History Brother Hx Family Cardiac Disorders: Yes Hx Family Respiratory Disorders: No Hx Family Cancer: No Hx Family GI Disorders: No Hx Family Endocrine Disorder: No Hx Family Neuromuscular Disorders: No Hx Family Neurologic Disorders: No Hx Family HEENT Disorders: No Hx Family Autoimmune Disorders: No Internal Medicine - H&P: Meds Atenolol [Tenormin] 50 mg PO DAILY 10/11/15 [History] Cyclobenzaprine [Flexeril] 10 mg PO TID PRN 07/14/15 [History] Diltiazem [Cardizem] 240 mg PO DAILY 07/14/15 [History] Pantoprazole Sodium [Protonix] 40 mg PO DAILY 07/14/15 [History] Metformin HCl [Metformin ER Gastric] 1,000 mg PO BID 09/03/18 [History] Torsemide [Demadex] 10 mg PO DAILY PRN 09/03/18 [History] Oxycodone HCl/Acetaminophen [Percocet 5-325 mg Tablet] 1 tab PO Q12H PRN [History] Sertraline [Zoloft] 25 mg PO DAILY 09/04/18 [History] buPROPion HCl [Bupropion Xl] 450 mg PO DAILY 09/04/18 [History] Cholecalciferol (D-3) [Vitamin D] 5,000 unit PO DAILY 12/17/18 [History] Allergy/AdvReac Type Severity Reaction Status Date / Time No Known Allergies Allergy Verified 01/13/18 21:36 All Systems PM: A 10-system review of systems was performed and is negative for pertinent findings except as documented above in the HPI. Review of systems: REVIEW OF SYSTEMS: CONSTITUTIONAL: No weight loss, fever, chills, weakness or fatigue. HEENT: Eyes: No visual loss, blurred vision, double vision or yellow sclerae. Ears, Nose, Throat: No hearing loss, sneezing, congestion, runny nose or sore throat. SKIN: No rash or itching. CARDIOVASCULAR: see HPI. RESPIRATORY: No shortness of breath, cough or sputum. GASTROINTESTINAL: No anorexia, nausea, vomiting or diarrhea. No abdominal pain or blood. GENITOURINARY: No dysuria, urgency, or frequency. NEUROLOGICAL: No headache, dizziness, syncope, paralysis, ataxia, numbness or tingling in the extremities. No change in bowel or bladder control. MUSCULOSKELETAL: No muscle, back pain, joint pain or stiffness. HEMATOLOGIC: No anemia, bleeding or bruising. LYMPHATICS: No enlarged nodes. No history of splenectomy. PSYCHIATRIC: No history of depression or anxiety. ENDOCRINOLOGIC: No reports of sweating, cold or heat intolerance. No polyuria or polydipsia. - Constitutional Vitals: Temp Pulse Resp BP Pulse Ox 98.2 F 85 18 135/82 100 03/16/19 19:52 12/17/18 19:52 12/17/18 19:52 12/17/18 19:52 12/17/18 19:52 General appearance: Present: cooperative, A&O X 3 Exam: PHYSICAL EXAMINATION: GENERAL APPEARANCE: The patient is alert, oriented and in no acute distress. HEENT: Head is normocephalic. The sinuses are nontender. Pupils are equal and reactive. The nares are patent. Oropharynx clear without lesions. NECK: Supple without lymphadenopathy. HEART: Regular rate and rhythm. LUNGS: No crackles or wheezes are heard. ABDOMEN: Soft, nontender, nondistended with good bowel sounds heard. Inguinal area is normal. EXTREMITIES: Without cyanosis, clubbing or edema. NEUROLOGICAL: Gross nonfocal. SKIN: Warm and dry without any rash. Internal Med - H&P Results - Labs CBC & Chem 7: 12/17/18 20:35 12/17/18 20:35 Labs: Short CBC 12/17/18 Range/Units 20:35 WBC 4.4 (4.3-11.1) K/mcL Hgb 12.9 (12.9-16.9) g/dL Hct 38.5 (37.5-50.1) % Plt Count 128 L (140-400) K/mcL Neutrophils # 2.8 (1.6-8.9) K/mcL BMP 12/17/18 20:35 Sodium 138 Potassium 3.8 Chloride 107 Carbon Dioxide 23 BUN 10 Creatinine 0.40 L Glucose 193 H Calcium 9.3 Cardiac Enzymes 12/17/18 Range/Units 20:35 Troponin I < 0.03 (< 0.04) ng/mL - Impressions ITS Impressions Chest X-Ray 12/17/18 19:56 IMPRESSION: No acute abnormality identified. D/ / Darinel Mack MD / Darinel Mack MD Interpreting Provider: Darinel Mack MD - Assessment and Plan (1) Chest pain Current Visit: Yes Status: Acute Assessment and plan: 48 year old male with Hx of Macdonald muscular dystrophy, HTN, DM and HTN presented with intermittent palpitation, chest pressure, and lightheadedness since Wednesday. Had remote Stress test 3 years ago which was negative. One brother 5 years old than him is currently on heart transplant waiting list due to Renae WAITE. Labs showed negative troponin, EKG showed LVH but no acute st-t changes. CXR no acute abnormalities. - Continue cycling troponin, tele monitoring, and EKG as needed. - ECHO and Stress test. Qualifiers: Chest pain type: unspecified Qualified Code(s): R07.9 - Chest pain, unspecified (2) HTN (hypertension) Current Visit: No Status: Acute Assessment and plan: continue monitoring BP, resume home meds once verified. Qualifiers: Hypertension type: essential hypertension Qualified Code(s): I10 - Essential (primary) hypertension (3) Muscular dystrophy, Renae Current Visit: No Status: Chronic Assessment and plan: F/u with Neurology and Cardiology was outpatient. (4) Diabetes Current Visit: No Status: Chronic Assessment and plan: Pending A1c. hold metformin, started on insulin sliding scale. Qualifiers: Diabetes mellitus type: type 2 Diabetes mellitus intermediate insulin use: without intermediate use Diabetes mellitus complication status: without complication Qualified Code(s): E11.9 - Type 2 diabetes mellitus without complications (5) DVT prophylaxis Current Visit: Yes Status: Acute Assessment and plan: SCDs. (6) Obesity (BMI 30-39.9) Current Visit: No Status: Chronic Assessment and plan: Weight control discussed with pt. - Time Spent With Patient Total time spent is greater than 50% in coordination of care (as documented) at patient's floor/unit and/or counseling patient: Greater than 35 minutes
[2018-12-18 04:57] LABS: Basophils % 0.7 %; Eosinophils # 0.2 K/mcL (0.0-0.6); Eosinophils % 3.3 %; Hematocrit 36.4 % (37.5-50.1); Hemoglobin 11.9 g/dL (12.9-16.9); Immature Granulocytes % 0.2 % (0-4); Lymphocytes # 1.4 K/mcL (0.6-4.6); Lymphocytes % 30.8 %; Mean Corpuscular HGB Conc 32.7 g/dL (31.6-35.5); Mean Corpuscular Volume 76.5 fL (83.0-100.0); Mean Platelet Volume 9.8 fL (9.4-12.4); Monocytes # 0.4 K/mcL (0.0-1.3); Monocytes % 7.8 %; Neutrophils # 2.6 K/mcL (1.6-8.9); Platelet Count 126 K/mcL (140-400); Red Blood Count 4.76 M/mcL (4.19-5.50); Red Cell Distribution Width 15.3 % (11.5-14.5); Segmented Neutrophils % 57.2 %
[2018-12-18 05:13] LABS: BUN/Creatinine Ratio 23 (6-26); Blood Urea Nitrogen 10 mg/dL (6-20); Calcium 8.8 mg/dL (8.6-10.3); Carbon Dioxide 22 mEq/L (23-29); Chloride 106 mEq/L (98-107); Chol/HDL Ratio 3.1 (0-4.9); Cholesterol 85 mg/dL (< 200); Glucose 204 mg/dL (70-105); HDL Cholesterol 27 mg/dL (40-59); LDL Cholesterol,Calculated 31 mg/dL (0-99); Osmolality,Calculated 289 (280-300); Potassium 3.5 mEq/L (3.5-5.1); Sodium 137 mEq/L (136-145); Triglycerides 135 mg/dL (< 150); eGFR For Non-African Americans > 60 (> 60)
[2018-12-18 06:28] LABS: Estimated Average Glucose 183 mg/dl
[2018-12-18] MEDS: Insulin LISPRO 300 UNITS/3 ML VIAL SQ SCH ×3 (09:11→16:37)
--- NOTE | 2018-12-18 12:05 | Internal Med Progress Note ---
Hospitalist Progress Note - Encounter Date of Encounter: 12/18/18 Time of Encounter: 12:00 - Subjective Interval History: She was seen at bedside completed first half of 2 day stress test. Currently denies any chest pain or palpitations. I did discuss treating plan with the patient who verbalized understanding. - Exam Vitals: Temp Pulse Resp BP Pulse Ox 98.3 F 82 16 119/71 97 12/18/18 11:20 12/18/18 11:20 12/18/18 11:20 12/18/18 11:20 12/18/18 11:20 Exam: PHYSICAL EXAMINATION: GENERAL APPEARANCE: The patient is alert, oriented and in no acute distress. HEENT: Head is normocephalic. The sinuses are nontender. Pupils are equal and reactive. The nares are patent. Oropharynx clear without lesions. NECK: Supple without lymphadenopathy. HEART: Regular rate and rhythm. LUNGS: No crackles or wheezes are heard. ABDOMEN: Soft, nontender, nondistended with good bowel sounds heard. Inguinal area is normal. EXTREMITIES: Without cyanosis, clubbing or edema. NEUROLOGICAL: Gross nonfocal. SKIN: Warm and dry without any rash. - Assessment and Plan (1) Chest pain Current Visit: Yes Status: Acute Assessment and Plan: 48 year old male with Hx of Macdonald muscular dystrophy, HTN, DM and HTN presented with intermittent palpitation, chest pressure, and lightheadedness since Wednesday. Had remote Stress test 3 years ago which was negative. One brother 5 years old than him is currently on heart transplant waiting list due to Renae WAITE. Labs showed negative troponin, EKG showed LVH but no acute st-t changes. CXR no acute abnormalities. - Continue cycling troponin, tele monitoring, and EKG as needed. - ECHO pending -Complete first half of 2 day stress no chest pain voiced Review of telemetry overnight does not show any arrhythmias average heart rate in the 70s (2) HTN (hypertension) Current Visit: No Status: Acute Assessment and Plan: continue monitoring BP, resume home meds once verified. (3) Muscular dystrophy, Macdonald Current Visit: No Status: Chronic Assessment and Plan: F/u with Neurology and Cardiology was outpatient. (4) Diabetes Current Visit: No Status: Chronic Assessment and Plan: Pending A1c. hold metformin, started on insulin sliding scale. (5) DVT prophylaxis Current Visit: Yes Status: Acute Assessment and Plan: SCDs. (6) Obesity (BMI 30-39.9) Current Visit: No Status: Chronic Assessment and Plan: Weight control discussed with pt. - Time Spent with Patient Total time spent is greater than 50% in coordination of care (as documented) at patient's floor/unit and/or counseling patient: Internal Medicine: Result - Labs CBC & Chem 7: 12/18/18 04:30 12/18/18 04:30 Labs: Short CBC 12/17/18 12/18/18 Range/Units 20:35 04:30 WBC 4.4 4.5 (4.3-11.1) K/mcL Hgb 12.9 11.9 L (12.9-16.9) g/dL Hct 38.5 36.4 L (37.5-50.1) % Plt Count 128 L 126 L (140-400) K/mcL Neutrophils # 2.8 2.6 (1.6-8.9) K/mcL BMP 12/17/18 12/18/18 20:35 04:30 Sodium 138 137 Potassium 3.8 3.5 Chloride 107 106 Carbon Dioxide 23 22 L BUN 10 10 Creatinine 0.40 L 0.43 L Glucose 193 H 204 H Calcium 9.3 8.8 Cardiac Enzymes 12/17/18 12/17/18 12/18/18 Range/Units 20:35 22:25 04:30 Troponin I < 0.03 < 0.03 < 0.03 (< 0.04) ng/mL - ABG Interpretation ABG results: PT/INR, D-dimer PT 15.6 Seconds (9.4-12.1) H 12/17/18 20:35 - Impressions Impressions Chest X-Ray 12/17/18 19:56 IMPRESSION: No acute abnormality identified. D/ / Darinel Mack MD / Darinel Mack MD Interpreting Provider: Darinel Mack MD Consult Discharge Plan - Plan Referrals: Rod Sheth DO [Primary Care Provider] - (1) Chest pain Qualifiers: Chest pain type: unspecified Qualified Code(s): R07.9 - Chest pain, unspecified (2) HTN (hypertension) Qualifiers: Hypertension type: essential hypertension Qualified Code(s): I10 - Essential (primary) hypertension (4) Diabetes Qualifiers: Diabetes mellitus type: type 2 Diabetes mellitus terminologist insulin use: without terminologist use Diabetes mellitus complication status: without complication Qualified Code(s): E11.9 - Type 2 diabetes mellitus without complications
[2018-12-18] MEDS ORDERED: Torsemide 20 MG TABLET PO PRN (12:07)
[2018-12-18] MEDS ORDERED: *HR* OxyCODONE/APAP 5/325 TABLET PO PRN (12:07)
[2018-12-18] MEDS ORDERED: Insulin LISPRO 300 UNITS/3 ML VIAL SQ SCH (21:00)
[2018-12-19] MEDS ORDERED: Regadenoson 0.4 MG/5 ML SYRINGE IVP ONE (06:03)
[2018-12-19] MEDS ORDERED: Cholecalciferol (D-3) 1,000 UNIT TABLET PO SCH (09:00)
[2018-12-19] MEDS ORDERED: Diltiazem CD (24hr) 240 MG CAPSULE PO SCH (09:00)
[2018-12-19] MEDS ORDERED: BuPROPion XL (24 HR) 150 MG TABLET PO SCH (09:00)
[2018-12-19] MEDS: Insulin LISPRO 300 UNITS/3 ML VIAL SQ SCH ×2 (10:32→12:15)
[2018-12-19 11:13] VITALS: BP 112/74
--- NOTE | 2018-12-19 14:23 | Discharge Summary ---
- NOTES TO OUTPATIENT PROVIDER Notes to Outpatient Provider: Presented with palpitations chest pressure-like had no since Wednesday. Underwent stress test which was negative for any ischemia or infarct telemetry monitoring with no arrhythmias sinus rhythm. Original EKG did show some PVCs but no A. fib Patient may benefit from outpatient Holter monitor Orders not resulted at time of discharge: Pending orders 12/18/18 08:50 NM chau perf SPECT multi [NM] Routine Date of Encounter: 12/19/18 Time of Encounter: 14:20 - Discharge Diagnosis (1) Chest pain Priority: Primary Status: Acute Qualifiers: Chest pain type: unspecified Qualified Code(s): R07.9 - Chest pain, unspecified (2) HTN (hypertension) Priority: Secondary Status: Acute Qualifiers: Hypertension type: essential hypertension Qualified Code(s): I10 - Essential (primary) hypertension (3) Muscular dystrophy, Macdonald Priority: Secondary Status: Chronic (4) Diabetes Priority: Secondary Status: Chronic Qualifiers: Diabetes mellitus type: type 2 Diabetes mellitus local [employer] insulin use: without skilled nursing use Diabetes mellitus complication status: without complication Qualified Code(s): E11.9 - Type 2 diabetes mellitus without complications (5) Obesity (BMI 30-39.9) Priority: Secondary Status: Chronic Hospital course: Mr. 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 EKG in ER did show some PVCs chest x-ray with no acute abnormalities troponins were negative 3 patient did undergo a cardiac stress test is negative for any ischemia or infarct review of telemetry shows no arrhythmias and he was sinus rhythm with a rate 60s 70s. He has not had a chest pain during this admission. Advised patient to follow-up with primary care provider he may require a Holter monitor as an outpatient. Currently patient is hemodynamically stable and he is ready for discharge. - Time Spent with Patient Total time spent providing and/or coordinating discharge services: - Discharge Medications Prescriptions: Continue Atenolol [Tenormin] 50 mg PO DAILY Pantoprazole Sodium [Protonix] 40 mg PO DAILY Diltiazem [Cardizem] 240 mg PO DAILY Cyclobenzaprine [Flexeril] 10 mg PO TID PRN PRN Reason: Muscle Spasm Metformin HCl [Metformin ER Gastric] 1,000 mg PO BID Torsemide [Demadex] 10 mg PO DAILY PRN PRN Reason: swelling Oxycodone HCl/Acetaminophen [Percocet 5-325 mg Tablet] 1 tab PO Q12H PRN PRN Reason: Pain Sertraline [Zoloft] 25 mg PO DAILY buPROPion HCl [Bupropion Xl] 450 mg PO DAILY Cholecalciferol (D-3) [Vitamin D] 5,000 unit PO DAILY Home Medications: Atenolol [Tenormin] 50 mg PO DAILY 07/14/15 [History] Cyclobenzaprine [Flexeril] 10 mg PO TID PRN 07/14/15 [History] Diltiazem [Cardizem] 240 mg PO DAILY 07/14/15 [History] Pantoprazole Sodium [Protonix] 40 mg PO DAILY 07/14/15 [History] Metformin HCl [Metformin ER Gastric] 1,000 mg PO BID 09/03/18 [History] Torsemide [Demadex] 10 mg PO DAILY PRN 09/03/18 [History] Oxycodone HCl/Acetaminophen [Percocet 5-325 mg Tablet] 1 tab PO Q12H PRN 09/04/18 [History] Sertraline [Zoloft] 25 mg PO DAILY 09/04/18 [History] buPROPion HCl [Bupropion Xl] 450 mg PO DAILY 09/04/18 [History] Cholecalciferol (D-3) [Vitamin D] 5,000 unit PO DAILY 12/17/18 [History] Allergies/Adverse Reactions: Allergy/AdvReac Type Severity Reaction Status Date / Time No Known Allergies Allergy Verified 01/13/18 21:36 Date of admission: 12/17/18 22:21 Primary care physician: Rod Sheth DO Discharging clinician: Cindy Holcomb Anticipated date of discharge: 12/19/18 - Constitutional Vitals: Temp Pulse Resp BP Pulse Ox 98.1 F 78 19 112/74 97 12/19/18 11:06 12/19/18 11:06 12/19/18 11:06 12/19/18 11:06 12/19/18 11:06 General appearance: Present: cooperative, A&O X 3 Exam: PHYSICAL EXAMINATION: GENERAL APPEARANCE: The patient is alert, oriented and in no acute distress. HEENT: Head is normocephalic. The sinuses are nontender. Pupils are equal and reactive. The nares are patent. Oropharynx clear without lesions. NECK: Supple without lymphadenopathy. HEART: Regular rate and rhythm. LUNGS: No crackles or wheezes are heard. ABDOMEN: Soft, nontender, nondistended with good bowel sounds heard. Inguinal area is normal. EXTREMITIES: Without cyanosis, clubbing or edema. NEUROLOGICAL: Gross nonfocal. SKIN: Warm and dry without any rash. - Patient Status Disposition: Home, Self-Care Condition: Good Functional capacity at discharge: independent ambulation Overall status at discharge: patient is back to baseline - Discharge Instructions Instructions: Chest Pain (DC) Follow Up With: Rod Sheth DO [Primary Care Provider] - 12/23/18 9:00 am - Diet and Activity Activity: increase activity as tolerated Diet: advance to your usual diet
--- NOTE | 2018-12-23 07:36 | Electrocardiograph Report ---
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
== END 2018-12-19 15:31 | disposition home or self-care (01) ==
LOC: EMEROOARM 19:47 → 3BNU 19:47
PROVIDERS: ADMIT Internal Medicine; ATTEND Internal Medicine

== ENCOUNTER 2020-08-09 16:43 | Inpatient (IN) ==
[2020-08-09] MEDS ORDERED: 0.9 % Sodium Chloride 1,000 ML IVC ONE (18:26)
[2020-08-09] MEDS ORDERED: *HR* HYDROmorphone (PF) 1 MG/ML SYRINGE IVP ONE ×2 (18:48→20:50)
[2020-08-09] MEDS ORDERED: Ondansetron 4 MG/2 ML VIAL IVP ONE (18:49)
[2020-08-09 19:21] LABS: Basophils % 0.5 %; Eosinophils # 0.1 K/mcL (0.0-0.6); Eosinophils % 2.3 %; Hematocrit 32.8 % (37.5-50.1); Hemoglobin 10.3 g/dL (12.9-16.9); Immature Granulocytes % 1.5 % (0-4); Lymphocytes # 0.9 K/mcL (0.6-4.6); Lymphocytes % 14.4 %; Mean Corpuscular HGB Conc 31.4 g/dL (31.6-35.5); Mean Corpuscular Hemoglobin 26.8 pg (28.0-33.3); Mean Corpuscular Volume 85.4 fL (83.0-100.0); Mean Platelet Volume 8.9 fL (9.4-12.4); Monocytes # 0.5 K/mcL (0.0-1.3); Monocytes % 8.5 %; Neutrophils # 4.5 K/mcL (1.6-8.9); Platelet Count 134 K/mcL (140-400); Red Blood Count 3.84 M/mcL (4.19-5.50); Red Cell Distribution Width 18.1 % (11.5-14.5); Segmented Neutrophils % 72.8 %; White Blood Count 6.1 K/mcL (4.3-11.1)
[2020-08-09 19:23] LABS: INR 1.6; Prothrombin Time 18.5 Seconds (9.4-12.1)
[2020-08-09 19:39] LABS: Alanine Aminotransferase 29 Units/L (7-52); Albumin 3.1 g/dL (3.5-5.7); Albumin/Globulin Ratio 0.7 (1.1-2.2); Alkaline Phosphatase 113 Units/L (34-104); Aspartate Amino Transferase 34 Units/L (13-39); BUN/Creatinine Ratio 17 (6-26); Bilirubin,Total 3.4 mg/dL (0.3-1.0); Blood Urea Nitrogen 8 mg/dL (6-20); Calcium 8.7 mg/dL (8.6-10.3); Carbon Dioxide 24 mEq/L (23-29); Chloride 105 mEq/L (98-107); Globulin 4.4 g/dL (2.4-3.5); Glucose 127 mg/dL (70-105); Osmolality,Calculated 280 (280-300); Potassium 3.8 mEq/L (3.5-5.1); Sodium 135 mEq/L (136-145); Total Protein 7.5 g/dL (6.4-8.9); eGFR For African Americans > 60 (> 60); eGFR For Non-African Americans > 60 (> 60)
[2020-08-09 19:44] LABS: Bacteria,Urine Few per hpf (None-Few); RBC,Urine 0-3 per hpf (0-3); WBC,Urine 50-100 per hpf (0-3)
[2020-08-09 19:48] LABS: Bilirubin,Urine Negative (Negative); Blood,Urine Trace-intact (Negative); Clarity,Urine Clear (Clear); Color,Urine Yellow (Yellow); Glucose,Urine (UA) 100 mg/dL (Normal); Ketones,Urine Negative (Negative); Leukocyte Esterase,Urine Large (Negative); Nitrite,Urine Negative (Negative); Protein,Urine Negative (Neg-Trace); Specific Gravity,Urine 1.015 (1.010-1.025); Urobilinogen,Urine >=8.0 mg/dL (Normal)
[2020-08-09] MEDS ORDERED: Isovue-370 500 ML BOTTLE IVP ONE (20:32)
[2020-08-09] MEDS ORDERED: cefTRIAXone 1,000 MG in Water for inj. (sterile) 10 ML IVP ONE (21:25)
[2020-08-09 21:54] LABS: Bilirubin,Direct 1.3 mg/dL (0.0-0.2); Lipase 66 Units/L (11-82)
[2020-08-09] MEDS ORDERED: Naloxone 0.4 MG/ML INJ IVP PRN (22:54)
[2020-08-09] MEDS ORDERED: Acetaminophen 325 MG TABLET PO PRN (22:54)
[2020-08-09] MEDS ORDERED: Ondansetron 4 MG/2 ML VIAL IVP PRN (22:54)
[2020-08-09] MEDS ORDERED: D5% in Water 1,000 ML IVC PRN (23:27)
[2020-08-09] MEDS ORDERED: *HR* Dextrose 50 % in Water (Vial) 50 ML VIAL IVP PRN (23:27)
[2020-08-09] MEDS ORDERED: Dextrose Gel 15 GM/37.5 ML TUBE PO PRN ×2 (23:27)
[2020-08-10] MEDS: Insulin LISPRO 300 UNITS/3 ML VIAL SQ SCH ×4 (00:19→18:41)
[2020-08-10] MEDS ORDERED: Saline Nasal Spray 44 ML BOTTLE NS PRN (00:49)
[2020-08-10] MEDS: Spironolactone 25 MG TABLET PO SCH ×3 (01:28→20:55)
[2020-08-10] MEDS: Lactulose Oral Soln 20 GM/30 ML UDC PO SCH ×3 (01:28→20:55)
[2020-08-10] MEDS ORDERED: Albumin 25% 25gram/100mL 25 GM/100 ML IV.SOLN IVPB ONE (03:18)
[2020-08-10] MEDS ORDERED: Furosemide 40 MG/4 ML VIAL IVP ONE (04:30)
[2020-08-10 05:17] LABS: INR 1.6; Prothrombin Time 18.3 Seconds (9.4-12.1)
[2020-08-10 05:54] LABS: % Iron Saturation 32 % (20-55); Iron 81 mcg/dL (65-175); Transferrin 183 mg/dL (203-362)
[2020-08-10 05:59] LABS: Alanine Aminotransferase 27 Units/L (7-52); Albumin 2.8 g/dL (3.5-5.7); Albumin/Globulin Ratio 0.7 (1.1-2.2); Alkaline Phosphatase 109 Units/L (34-104); Aspartate Amino Transferase 34 Units/L (13-39); BUN/Creatinine Ratio 19 (6-26); Bilirubin,Direct 1.9 mg/dL (0.0-0.2); Bilirubin,Total 3.9 mg/dL (0.3-1.0); Blood Urea Nitrogen 9 mg/dL (6-20); Calcium 8.7 mg/dL (8.6-10.3); Carbon Dioxide 22 mEq/L (23-29); Chloride 107 mEq/L (98-107); Globulin 4.1 g/dL (2.4-3.5); Glucose 136 mg/dL (70-105); Magnesium 1.7 mg/dL (1.6-2.6); Osmolality,Calculated 285 (280-300); Potassium 3.4 mEq/L (3.5-5.1); Sodium 137 mEq/L (136-145); Total Protein 6.9 g/dL (6.4-8.9); eGFR For African Americans > 60 (> 60); eGFR For Non-African Americans > 60 (> 60)
[2020-08-10 07:50] LABS: Hematocrit 30.7 % (37.5-50.1); Mean Corpuscular HGB Conc 32.6 g/dL (31.6-35.5); Mean Corpuscular Hemoglobin 27.5 pg (28.0-33.3); Mean Corpuscular Volume 84.3 fL (83.0-100.0); Mean Platelet Volume 9.1 fL (9.4-12.4); Platelet Count 141 K/mcL (140-400); Red Blood Count 3.64 M/mcL (4.19-5.50); Red Cell Distribution Width 18.5 % (11.5-14.5); White Blood Count 6.9 K/mcL (4.3-11.1)
[2020-08-10] MEDS: cefTRIAXone 2,000 MG in Water for inj. (sterile) 20 ML IVP SCH (08:59)
[2020-08-10] MEDS ORDERED: LACTULOSE 20 GM PO PRN (18:07)
[2020-08-10] MEDS: DAPTOmycin 500 MG in 0.9 % Sodium Chloride 100 ML IVPB SCH (19:53)
[2020-08-10] MEDS: Insulin DETEMIR 100 UNIT/ML X5UNITS SQ SCH (20:56)
[2020-08-11] MEDS: Insulin LISPRO 300 UNITS/3 ML VIAL SQ SCH ×5 (04:04→21:26)
[2020-08-11 08:40] LABS: Basophils % 0.6 %; Eosinophils # 0.1 K/mcL (0.0-0.6); Eosinophils % 1.6 %; Hematocrit 28.3 % (37.5-50.1); Hemoglobin 9.5 g/dL (12.9-16.9); Immature Granulocytes % 0.7 % (0-4); Lymphocytes # 0.7 K/mcL (0.6-4.6); Lymphocytes % 10.1 %; Mean Corpuscular HGB Conc 33.6 g/dL (31.6-35.5); Mean Corpuscular Hemoglobin 28.1 pg (28.0-33.3); Mean Corpuscular Volume 83.7 fL (83.0-100.0); Mean Platelet Volume 8.9 fL (9.4-12.4); Monocytes # 0.6 K/mcL (0.0-1.3); Monocytes % 8.6 %; Neutrophils # 5.4 K/mcL (1.6-8.9); Platelet Count 148 K/mcL (140-400); Red Blood Count 3.38 M/mcL (4.19-5.50); Red Cell Distribution Width 18.3 % (11.5-14.5); Segmented Neutrophils % 78.4 %; White Blood Count 6.9 K/mcL (4.3-11.1)
[2020-08-11] MEDS: Cholecalciferol (D-3) 1,000 UNIT (25MCG) TABLET PO SCH (08:45)
[2020-08-11] MEDS: Spironolactone 25 MG TABLET PO SCH ×2 (08:45→21:26)
[2020-08-11] MEDS: cefTRIAXone 2,000 MG in Water for inj. (sterile) 20 ML IVP SCH (08:47)
[2020-08-11 08:55] LABS: BUN/Creatinine Ratio 18 (6-26); Blood Urea Nitrogen 9 mg/dL (6-20); Calcium 8.4 mg/dL (8.6-10.3); Carbon Dioxide 24 mEq/L (23-29); Chloride 102 mEq/L (98-107); Glucose 112 mg/dL (70-105); Osmolality,Calculated 277 (280-300); Potassium 3.3 mEq/L (3.5-5.1); Sodium 134 mEq/L (136-145); eGFR For African Americans > 60 (> 60); eGFR For Non-African Americans > 60 (> 60)
[2020-08-11] MEDS: atenoloL 25 MG TABLET PO SCH (08:57)
[2020-08-11] MEDS: Lactulose Oral Soln 20 GM/30 ML UDC PO SCH ×2 (08:57→21:27)
[2020-08-11] MEDS: DAPTOmycin 500 MG in 0.9 % Sodium Chloride 100 ML IVPB SCH (19:06)
[2020-08-11] MEDS ORDERED: Insulin LISPRO 300 UNITS/3 ML VIAL SQ SCH (19:30)
[2020-08-11] MEDS: Insulin DETEMIR 100 UNIT/ML X5UNITS SQ SCH (23:02)
[2020-08-12] MEDS ORDERED: *HR* HYDROcodone/Acet 5/325 mg TABLET PO ONE (03:19)
[2020-08-12 03:23] LABS: Basophils % 0.6 %; Eosinophils # 0.1 K/mcL (0.0-0.6); Eosinophils % 1.9 %; Hematocrit 27.7 % (37.5-50.1); Hemoglobin 9.1 g/dL (12.9-16.9); Immature Granulocytes % 1.1 % (0-4); Lymphocytes # 0.8 K/mcL (0.6-4.6); Lymphocytes % 12.2 %; Mean Corpuscular HGB Conc 32.9 g/dL (31.6-35.5); Mean Corpuscular Hemoglobin 27.7 pg (28.0-33.3); Mean Corpuscular Volume 84.5 fL (83.0-100.0); Mean Platelet Volume 9.5 fL (9.4-12.4); Monocytes # 0.6 K/mcL (0.0-1.3); Monocytes % 8.6 %; Neutrophils # 4.9 K/mcL (1.6-8.9); Platelet Count 151 K/mcL (140-400); Red Blood Count 3.28 M/mcL (4.19-5.50); Segmented Neutrophils % 75.6 %; White Blood Count 6.5 K/mcL (4.3-11.1)
[2020-08-12 03:39] LABS: BUN/Creatinine Ratio 21 (6-26); Blood Urea Nitrogen 10 mg/dL (6-20); Carbon Dioxide 24 mEq/L (23-29); Chloride 102 mEq/L (98-107); Glucose 164 mg/dL (70-105); Osmolality,Calculated 277 (280-300); Potassium 3.4 mEq/L (3.5-5.1); Sodium 132 mEq/L (136-145); eGFR For African Americans > 60 (> 60); eGFR For Non-African Americans > 60 (> 60)
[2020-08-12] MEDS: Insulin LISPRO 300 UNITS/3 ML VIAL SQ SCH ×4 (08:11→19:42)
[2020-08-12] MEDS: Cholecalciferol (D-3) 1,000 UNIT (25MCG) TABLET PO SCH (08:49)
[2020-08-12] MEDS: atenoloL 25 MG TABLET PO SCH (08:50)
[2020-08-12] MEDS: Spironolactone 25 MG TABLET PO SCH ×2 (08:50→19:44)
[2020-08-12] MEDS: cefTRIAXone 2,000 MG in Water for inj. (sterile) 20 ML IVP SCH (08:50)
[2020-08-12] MEDS: Lactulose Oral Soln 20 GM/30 ML UDC PO SCH ×2 (08:51→19:41)
[2020-08-12] MEDS: Gabapentin 100 MG CAPSULE PO SCH ×4 (10:25→21:49)
[2020-08-12 12:07] LABS: Alanine Aminotransferase 26 Units/L (7-52); Albumin 2.7 g/dL (3.5-5.7); Albumin/Globulin Ratio 0.7 (1.1-2.2); Alkaline Phosphatase 97 Units/L (34-104); Aspartate Amino Transferase 51 Units/L (13-39); Bilirubin,Direct 1.4 mg/dL (0.0-0.2); Bilirubin,Indirect 1.5 mg/dL (0.0-1.0); Bilirubin,Total 2.9 mg/dL (0.3-1.0); Globulin 3.8 g/dL (2.4-3.5); Total Protein 6.5 g/dL (6.4-8.9)
[2020-08-12] MEDS: Nitrofurantoin (BID) 100 MG CAPSULE PO SCH (15:05)
[2020-08-12] MEDS: Insulin DETEMIR 100 UNIT/ML X5UNITS SQ SCH (21:49)
[2020-08-13] MEDS: Cholecalciferol (D-3) 1,000 UNIT (25MCG) TABLET PO SCH (08:16)
[2020-08-13] MEDS: cefTRIAXone 2,000 MG in Water for inj. (sterile) 20 ML IVP SCH (08:17)
[2020-08-13] MEDS: Nitrofurantoin (BID) 100 MG CAPSULE PO SCH (08:17)
[2020-08-13] MEDS: Spironolactone 25 MG TABLET PO SCH ×2 (08:17→21:57)
[2020-08-13] MEDS: Lactulose Oral Soln 20 GM/30 ML UDC PO SCH (08:18)
[2020-08-13] MEDS: Gabapentin 100 MG CAPSULE PO SCH ×3 (08:18→21:57)
[2020-08-13] MEDS: atenoloL 25 MG TABLET PO SCH (08:18)
[2020-08-13] MEDS: Insulin LISPRO 300 UNITS/3 ML VIAL SQ SCH ×4 (08:21→21:46)
[2020-08-13 10:21] LABS: Basophils % 0.5 %; Eosinophils # 0.1 K/mcL (0.0-0.6); Eosinophils % 1.9 %; Hematocrit 27.9 % (37.5-50.1); Hemoglobin 9.2 g/dL (12.9-16.9); Lymphocytes # 0.6 K/mcL (0.6-4.6); Lymphocytes % 9.9 %; Mean Corpuscular Hemoglobin 27.8 pg (28.0-33.3); Mean Corpuscular Volume 84.3 fL (83.0-100.0); Mean Platelet Volume 9.3 fL (9.4-12.4); Monocytes # 0.5 K/mcL (0.0-1.3); Monocytes % 7.2 %; Platelet Count 148 K/mcL (140-400); Red Blood Count 3.31 M/mcL (4.19-5.50); Red Cell Distribution Width 18.6 % (11.5-14.5); Segmented Neutrophils % 79.5 %; White Blood Count 6.3 K/mcL (4.3-11.1)
[2020-08-13 10:32] LABS: BUN/Creatinine Ratio 28 (6-26); Blood Urea Nitrogen 11 mg/dL (6-20); Calcium 8.2 mg/dL (8.6-10.3); Carbon Dioxide 23 mEq/L (23-29); Chloride 105 mEq/L (98-107); Glucose 200 mg/dL (70-105); Osmolality,Calculated 281 (280-300); Potassium 3.9 mEq/L (3.5-5.1); Sodium 133 mEq/L (136-145); eGFR For African Americans > 60 (> 60); eGFR For Non-African Americans > 60 (> 60)
[2020-08-13] MEDS ORDERED: Lactulose 200 GM, Sodium Chloride IRRigation 700 ML RC ONE (11:11)
[2020-08-13] MEDS: Insulin DETEMIR 100 UNIT/ML X5UNITS SQ SCH (21:52)
[2020-08-14 04:20] LABS: Basophils # 0.1 K/mcL (0.0-0.2); Basophils % 0.7 %; Eosinophils # 0.2 K/mcL (0.0-0.6); Eosinophils % 2.1 %; Hematocrit 28.7 % (37.5-50.1); Hemoglobin 9.3 g/dL (12.9-16.9); Immature Granulocytes % 0.6 % (0-4); Lymphocytes % 13.5 %; Mean Corpuscular HGB Conc 32.4 g/dL (31.6-35.5); Mean Corpuscular Hemoglobin 27.8 pg (28.0-33.3); Mean Corpuscular Volume 85.7 fL (83.0-100.0); Mean Platelet Volume 8.9 fL (9.4-12.4); Monocytes # 0.6 K/mcL (0.0-1.3); Monocytes % 7.6 %; Neutrophils # 5.5 K/mcL (1.6-8.9); Platelet Count 158 K/mcL (140-400); Red Blood Count 3.35 M/mcL (4.19-5.50); Red Cell Distribution Width 18.5 % (11.5-14.5); Segmented Neutrophils % 75.5 %; White Blood Count 7.3 K/mcL (4.3-11.1)
[2020-08-14 04:46] LABS: BUN/Creatinine Ratio 26 (6-26); Blood Urea Nitrogen 10 mg/dL (6-20); Calcium 8.5 mg/dL (8.6-10.3); Carbon Dioxide 23 mEq/L (23-29); Chloride 106 mEq/L (98-107); Glucose 130 mg/dL (70-105); Osmolality,Calculated 283 (280-300); Phosphorous 3.1 mg/dL (2.7-4.5); Potassium 3.8 mEq/L (3.5-5.1); Sodium 136 mEq/L (136-145); eGFR For African Americans > 60 (> 60); eGFR For Non-African Americans > 60 (> 60)
[2020-08-14 07:37] VITALS: BP 94/54
[2020-08-14] MEDS ORDERED: Lactulose 200 GM, Sodium Chloride IRRigation 700 ML RC ONE (08:43)
[2020-08-14] MEDS: Insulin LISPRO 300 UNITS/3 ML VIAL SQ SCH (08:51)
[2020-08-14] MEDS ORDERED: levoFLOXacin 500 MG TABLET PO SCH (09:00)
[2020-08-14] MEDS: cefTRIAXone 2,000 MG in Water for inj. (sterile) 20 ML IVP SCH (09:03)
[2020-08-14] MEDS: Spironolactone 25 MG TABLET PO SCH (09:04)
[2020-08-14] MEDS: Gabapentin 100 MG CAPSULE PO SCH (09:04)
[2020-08-14] MEDS: Cholecalciferol (D-3) 1,000 UNIT (25MCG) TABLET PO SCH (09:04)
[2020-08-14] MEDS: atenoloL 25 MG TABLET PO SCH (09:04)
[2020-08-14] MEDS ORDERED: Lactulose Oral Soln 20 GM/30 ML UDC PO SCH (10:30)
== END 2020-08-14 15:30 | disposition home or self-care (01) | DRG 441 ==
LOC: 3BNU 16:43 → EMEROOARM 16:43 → 3BNU 08-10 01:10 → SUATTDRO 08-11 16:53
PROVIDERS: ADMIT Internal Medicine; ATTEND Internal Medicine

== ENCOUNTER 2020-08-31 13:39 | Inpatient (IN) ==
[2020-08-31] MEDS ORDERED: Morphine Sulfate 2 MG/ML SYRINGE IVP ONE ×2 (13:47→16:32)
[2020-08-31] MEDS ORDERED: Ondansetron 4 MG/2 ML VIAL IVP ONE (13:47)
[2020-08-31] MEDS ORDERED: Isovue-370 500 ML BOTTLE IVP ONE (13:48)
[2020-08-31 14:14] LABS: Basophils % 0.7 %; Eosinophils # 0.2 K/mcL (0.0-0.6); Eosinophils % 3.4 %; Hematocrit 29.5 % (37.5-50.1); INR 1.8; Immature Granulocytes % 1.2 % (0-4); Lymphocytes # 0.5 K/mcL (0.6-4.6); Lymphocytes % 8.4 %; Mean Corpuscular HGB Conc 33.9 g/dL (31.6-35.5); Mean Corpuscular Hemoglobin 28.8 pg (28.0-33.3); Mean Platelet Volume 8.6 fL (9.4-12.4); Monocytes # 0.5 K/mcL (0.0-1.3); Monocytes % 8.4 %; Neutrophils # 4.6 K/mcL (1.6-8.9); Nucleated Red Blood Cells 0.7 /100 WBC (0); Platelet Count 120 K/mcL (140-400); Prothrombin Time 20.9 Seconds (9.4-12.1); Red Blood Count 3.47 M/mcL (4.19-5.50); Red Cell Distribution Width 18.9 % (11.5-14.5); Segmented Neutrophils % 77.9 %; White Blood Count 5.9 K/mcL (4.3-11.1)
[2020-08-31] MEDS ORDERED: 0.9 % Sodium Chloride 1,000 ML IV ONE (14:23)
[2020-08-31 14:36] LABS: Alanine Aminotransferase 40 Units/L (7-52); Albumin 2.5 g/dL (3.5-5.7); Albumin/Globulin Ratio 0.6 (1.1-2.2); Alkaline Phosphatase 109 Units/L (34-104); Aspartate Amino Transferase 79 Units/L (13-39); BUN/Creatinine Ratio 21 (6-26); Bilirubin,Direct 8.6 mg/dL (0.0-0.2); Bilirubin,Indirect 4.9 mg/dL (0.0-1.0); Bilirubin,Total 13.5 mg/dL (0.3-1.0); Blood Urea Nitrogen 16 mg/dL (6-20); Calcium 8.9 mg/dL (8.6-10.3); Carbon Dioxide 19 mEq/L (23-29); Chloride 102 mEq/L (98-107); Globulin 4.3 g/dL (2.4-3.5); Glucose 90 mg/dL (70-105); Lipase 65 Units/L (11-82); Osmolality,Calculated 275 (280-300); Potassium 3.6 mEq/L (3.5-5.1); Sodium 132 mEq/L (136-145); Total Protein 6.8 g/dL (6.4-8.9); Troponin I < 0.03 ng/mL (< 0.04); eGFR For African Americans > 60 (> 60); eGFR For Non-African Americans > 60 (> 60)
[2020-08-31] MEDS ORDERED: 0.9 % Sodium Chloride 1,000 ML IVC ONE (16:32)
[2020-08-31] MEDS ORDERED: Naloxone 0.4 MG/ML INJ IVP PRN (16:35)
[2020-08-31] MEDS ORDERED: Ondansetron ODT 4 MG TAB.RAPDIS SL PRN (16:35)
[2020-08-31 16:57] LABS: Acetaminophen < 10 mcg/mL (10-20); Salicylate < 2.5 mg/dL (15.0-30.0)
[2020-08-31] MEDS ORDERED: Lactulose 200 GM, Sodium Chloride IRRigation 700 ML RC ONE (17:24)
[2020-08-31 17:39] LABS: Bacteria,Urine Few per hpf (None-Few); Bilirubin,Urine Moderate (Negative); Blood,Urine Negative (Negative); Clarity,Urine Ex.Turbid (Clear); Color,Urine Dark-Yellow (Yellow); Glucose,Urine (UA) Normal (Normal); Ketones,Urine Negative (Negative); Leukocyte Esterase,Urine Negative (Negative); Mucus,Urine Few per lpf (None-Few); Nitrite,Urine Negative (Negative); Protein,Urine Trace mg/dL (Neg-Trace); RBC,Urine 0-3 per hpf (0-3); Specific Gravity,Urine 1.029 (1.010-1.025)
[2020-08-31 17:52] LABS: Amphetamine Screen,Urine Negative ng/mL (Cutoff=1000); Barbiturate Screen,Urine Negative ng/mL (Cutoff=200); Benzodiazepines Screen,Urine Negative ng/mL (Cutoff=200); Cannabinoid Screen,Urine Negative ng/mL (Cutoff = 50); Cocaine Screen,Urine Negative ng/mL (Cutoff= 300); Opiate Screen,Urine Positive ng/mL (Cutoff=300); Phencyclidine Screen,Urine Negative ng/mL (Cutoff=25)
[2020-08-31] MEDS: 0.9 % Sodium Chloride 1,000 ML IVC SCH (19:46)
[2020-08-31] MEDS: Lactulose Oral Soln 20 GM/30 ML UDC PO SCH (22:13)
[2020-09-01 04:14] LABS: Basophils % 0.4 %; Eosinophils # 0.1 K/mcL (0.0-0.6); Eosinophils % 0.8 %; Hematocrit 29.2 % (37.5-50.1); Hemoglobin 9.7 g/dL (12.9-16.9); Immature Granulocytes % 2.1 % (0-4); Lymphocytes # 0.6 K/mcL (0.6-4.6); Lymphocytes % 6.6 %; Mean Corpuscular HGB Conc 33.2 g/dL (31.6-35.5); Mean Corpuscular Hemoglobin 28.4 pg (28.0-33.3); Mean Corpuscular Volume 85.4 fL (83.0-100.0); Mean Platelet Volume 8.8 fL (9.4-12.4); Monocytes # 0.7 K/mcL (0.0-1.3); Nucleated Red Blood Cells 0.5 /100 WBC (0); Platelet Count 117 K/mcL (140-400); Red Blood Count 3.42 M/mcL (4.19-5.50); Red Cell Distribution Width 19.5 % (11.5-14.5); Segmented Neutrophils % 83.1 %
[2020-09-01 04:18] LABS: White Blood Count 9.6 K/mcL (4.3-11.1)
[2020-09-01 04:34] LABS: Prothrombin Time 22.9 Seconds (9.4-12.1)
[2020-09-01 05:21] LABS: Alanine Aminotransferase 40 Units/L (7-52); Albumin 2.4 g/dL (3.5-5.7); Albumin/Globulin Ratio 0.6 (1.1-2.2); Alkaline Phosphatase 109 Units/L (34-104); Aspartate Amino Transferase 85 Units/L (13-39); BUN/Creatinine Ratio 25 (6-26); Bilirubin,Direct 9.7 mg/dL (0.0-0.2); Bilirubin,Indirect 6.4 mg/dL (0.0-1.0); Bilirubin,Total 16.1 mg/dL (0.3-1.0); Blood Urea Nitrogen 18 mg/dL (6-20); Calcium 7.8 mg/dL (8.6-10.3); Carbon Dioxide 15 mEq/L (23-29); Chloride 111 mEq/L (98-107); Globulin 3.8 g/dL (2.4-3.5); Glucose 109 mg/dL (70-105); Magnesium 1.9 mg/dL (1.6-2.6); Osmolality,Calculated 288 (280-300); Potassium 4.2 mEq/L (3.5-5.1); Sodium 138 mEq/L (136-145); Thyroid Stimulating Hormone 0.446 mcIU/mL (0.340-5.600); Total Protein 6.2 g/dL (6.4-8.9); eGFR For African Americans > 60 (> 60); eGFR For Non-African Americans > 60 (> 60)
[2020-09-01] MEDS: 0.9 % Sodium Chloride 1,000 ML IVC SCH (05:44)
[2020-09-01] MEDS ORDERED: Albumin Human 5% 12.5 GM/250 ML IV.SOLN IVC SCH (08:00)
[2020-09-01] MEDS ORDERED: *HR* Dextrose 50 % in Water (Vial) 50 ML VIAL IVP PRN (08:04)
[2020-09-01] MEDS ORDERED: Dextrose Gel 15 GM/37.5 ML TUBE PO PRN ×2 (08:04)
[2020-09-01] MEDS ORDERED: D5% in Water 1,000 ML IVC PRN (08:04)
[2020-09-01] MEDS ORDERED: atenoloL 25 MG TABLET PO SCH (09:00)
[2020-09-01] MEDS: Lactulose Oral Soln 20 GM/30 ML UDC PO SCH ×2 (09:43→22:14)
[2020-09-01] MEDS: Insulin LISPRO 300 UNITS/3 ML VIAL SQ SCH ×2 (11:19→17:30)
[2020-09-01] MEDS ORDERED: atenoloL 25 MG TABLET PO ONE (12:49)
[2020-09-01] MEDS: atenoloL 25 MG TABLET PO SCH (14:15)
[2020-09-01] MEDS ORDERED: Lactulose 200 GM, Sodium Chloride IRRigation 700 ML RC ONE (21:00)
[2020-09-02 05:17] LABS: Basophils # 0.1 K/mcL (0.0-0.2); Eosinophils # 0.2 K/mcL (0.0-0.6); Eosinophils % 2.2 %; Hematocrit 27.9 % (37.5-50.1); Hemoglobin 9.4 g/dL (12.9-16.9); Immature Granulocytes % 4.2 % (0-4); Lymphocytes # 0.7 K/mcL (0.6-4.6); Lymphocytes % 8.7 %; Mean Corpuscular HGB Conc 33.7 g/dL (31.6-35.5); Mean Corpuscular Hemoglobin 28.7 pg (28.0-33.3); Mean Corpuscular Volume 85.1 fL (83.0-100.0); Mean Platelet Volume 9.2 fL (9.4-12.4); Monocytes # 0.5 K/mcL (0.0-1.3); Monocytes % 6.5 %; Neutrophils # 6.5 K/mcL (1.6-8.9); Nucleated Red Blood Cells 0.5 /100 WBC (0); Platelet Count 117 K/mcL (140-400); Red Blood Count 3.28 M/mcL (4.19-5.50); Red Cell Distribution Width 19.8 % (11.5-14.5); Segmented Neutrophils % 77.4 %; White Blood Count 8.4 K/mcL (4.3-11.1)
[2020-09-02 05:24] LABS: BUN/Creatinine Ratio 21 (6-26); Blood Urea Nitrogen 16 mg/dL (6-20); Calcium 8.4 mg/dL (8.6-10.3); Carbon Dioxide 20 mEq/L (23-29); Chloride 103 mEq/L (98-107); Glucose 79 mg/dL (70-105); Magnesium 1.9 mg/dL (1.6-2.6); Osmolality,Calculated 274 (280-300); Phosphorous 2.3 mg/dL (2.7-4.5); Potassium 3.4 mEq/L (3.5-5.1); Sodium 132 mEq/L (136-145); eGFR For African Americans > 60 (> 60); eGFR For Non-African Americans > 60 (> 60)
[2020-09-02] MEDS ORDERED: Potassium Phosphate 44 MEQ in 0.9 % Sodium Chloride 250 ML IVPB ONE (07:19)
[2020-09-02] MEDS: Lactulose Oral Soln 20 GM/30 ML UDC PO SCH ×2 (07:50→21:56)
[2020-09-02] MEDS: atenoloL 25 MG TABLET PO SCH (07:50)
[2020-09-02] MEDS: Cholecalciferol (D-3) 1,000 UNIT (25MCG) TABLET PO SCH (07:50)
[2020-09-02] MEDS: Insulin LISPRO 300 UNITS/3 ML VIAL SQ SCH ×4 (07:51→22:02)
[2020-09-02 09:43] LABS: Alanine Aminotransferase 38 Units/L (7-52); Albumin 2.5 g/dL (3.5-5.7); Albumin/Globulin Ratio 0.6 (1.1-2.2); Alkaline Phosphatase 121 Units/L (34-104); Aspartate Amino Transferase 79 Units/L (13-39); Bilirubin,Direct 9.9 mg/dL (0.0-0.2); Bilirubin,Indirect 8.1 mg/dL (0.0-1.0); Globulin 3.9 g/dL (2.4-3.5); Total Protein 6.4 g/dL (6.4-8.9)
[2020-09-02 16:08] LABS: ABG Base Excess -4 mEq/L (-2 to 3); ABG HCO3 20 mEq/L (21-27); ABG Oxygen Saturation 96 % (95-98); ABG PCO2 28 mmHg (35-45); ABG PH 7.46 pH Units (7.32-7.45); ABG PO2 74 mmHg (85-104); ABG TCO2 21 mEq/L (20-26)
[2020-09-02] MEDS: cefTRIAXone 1,000 MG in 0.9 % Sodium Chloride Mini Bag 100 ML IVP SCH (16:45)
[2020-09-02] MEDS: Spironolactone 25 MG TABLET PO SCH (21:56)
[2020-09-03 05:15] LABS: INR 2.2; Prothrombin Time 24.6 Seconds (9.4-12.1)
[2020-09-03 05:29] LABS: Alanine Aminotransferase 38 Units/L (7-52); Albumin 2.3 g/dL (3.5-5.7); Albumin/Globulin Ratio 0.6 (1.1-2.2); Alkaline Phosphatase 121 Units/L (34-104); Aspartate Amino Transferase 77 Units/L (13-39); BUN/Creatinine Ratio 20 (6-26); Bilirubin,Total 20.8 mg/dL (0.3-1.0); Blood Urea Nitrogen 13 mg/dL (6-20); Calcium 8.3 mg/dL (8.6-10.3); Carbon Dioxide 21 mEq/L (23-29); Chloride 99 mEq/L (98-107); Globulin 3.8 g/dL (2.4-3.5); Glucose 92 mg/dL (70-105); Magnesium 1.8 mg/dL (1.6-2.6); Osmolality,Calculated 264 (280-300); Phosphorous 2.3 mg/dL (2.7-4.5); Potassium 3.3 mEq/L (3.5-5.1); Sodium 127 mEq/L (136-145); Total Protein 6.1 g/dL (6.4-8.9); eGFR For African Americans > 60 (> 60); eGFR For Non-African Americans > 60 (> 60)
[2020-09-03] MEDS ORDERED: 0.9 % Sodium Chloride 250 ML IVC ONE (08:30)
[2020-09-03] MEDS ORDERED: Albumin 25% 25gram/100mL 25 GM/100 ML IV.SOLN IVC SCH (08:30)
[2020-09-03] MEDS: Insulin LISPRO 300 UNITS/3 ML VIAL SQ SCH ×4 (08:31→21:39)
[2020-09-03] MEDS: Spironolactone 25 MG TABLET PO SCH (08:31)
[2020-09-03] MEDS: atenoloL 25 MG TABLET PO SCH (08:31)
[2020-09-03] MEDS: Cholecalciferol (D-3) 1,000 UNIT (25MCG) TABLET PO SCH (08:42)
[2020-09-03] MEDS: Lactulose Oral Soln 20 GM/30 ML UDC PO SCH ×2 (08:42→21:39)
[2020-09-03] MEDS: cefTRIAXone 1,000 MG in 0.9 % Sodium Chloride Mini Bag 100 ML IVP SCH (08:42)
[2020-09-03] MEDS ORDERED: *HR* Midazolam HCl 2 MG/2 ML VIAL IVP ONE (10:02)
[2020-09-03] MEDS ORDERED: *HR* FentaNYL (PF) 100 MCG/2 ML VIAL IVP ONE (10:02)
[2020-09-03] MEDS ORDERED: 0.9 % Sodium Chloride 500 ML ONE (10:09)
[2020-09-03] MEDS: Vancomycin 1,750 MG/517.5 ML IV.SOLN IVPB SCH ×2 (11:09→23:17)
[2020-09-04 07:00] LABS: Acinetobacter baumannii by PCR Not Detected (Not Detect); Candida albicans by PCR Not Detected (Not Detect); Candida glabrata by PCR Not Detected (Not Detect); Candida krusei by PCR Not Detected (Not Detect); Candida parapsilosis by PCR Not Detected (Not Detect); Candida tropicalis by PCR Not Detected (Not Detect); Enterobacter cloacae Cmplx PCR Not Detected (Not Detect); Enterobacteriaceae by PCR Not Detected (Not Detect); Enterococcus by PCR Not Detected (Not Detect); Escherichia coli by PCR Not Detected (Not Detect); Klebsiella oxytoca by PCR Not Detected (Not Detect); Klebsiella pneumoniae by PCR Not Detected (Not Detect); Proteus by PCR Not Detected (Not Detect); Pseudomonas aeruginosa by PCR Not Detected (Not Detect); Serratia marcescens by PCR Not Detected (Not Detect); Staphylococcus aureus by PCR DETECTED (Not Detect); Staphylococcus by PCR Not Detected (Not Detect); Streptococcus agalactiae(B)PCR Not Detected (Not Detect); Streptococcus by PCR Not Detected (Not Detect); Streptococcus pneumoniae PCR Not Detected (Not Detect); Streptococcus pyogenes (A) PCR Not Detected (Not Detect); mecA Methicillin-Resist Gene DETECTED (Not Detect)
[2020-09-04 07:57] VITALS: BP 97/62
[2020-09-04 09:11] LABS: Hematocrit 24.8 % (37.5-50.1); Nucleated Red Blood Cells 0.2 /100 WBC (0)
[2020-09-04 09:13] LABS: Hemoglobin 8.3 g/dL (12.9-16.9); Immature Platelets 2.3 % (1.1-6.1); Lymphocytes # 0.8 K/mcL (0.6-4.6); Mean Corpuscular HGB Conc 33.5 g/dL (31.6-35.5); Mean Corpuscular Hemoglobin 28.7 pg (28.0-33.3); Mean Corpuscular Volume 85.8 fL (83.0-100.0); Red Blood Count 2.89 M/mcL (4.19-5.50); Red Cell Distribution Width 20.6 % (11.5-14.5); White Blood Count 12.8 K/mcL (4.3-11.1)
[2020-09-04 09:56] LABS: BUN/Creatinine Ratio 17 (6-26); Blood Urea Nitrogen 12 mg/dL (6-20); Carbon Dioxide 19 mEq/L (23-29); Chloride 100 mEq/L (98-107); Glucose 74 mg/dL (70-105); Magnesium 1.9 mg/dL (1.6-2.6); Osmolality,Calculated 266 (280-300); Potassium 3.1 mEq/L (3.5-5.1); Sodium 129 mEq/L (136-145); eGFR For African Americans > 60 (> 60); eGFR For Non-African Americans > 60 (> 60)
[2020-09-04] MEDS: Insulin LISPRO 300 UNITS/3 ML VIAL SQ SCH ×3 (10:09→17:06)
[2020-09-04] MEDS: cefTRIAXone 1,000 MG in 0.9 % Sodium Chloride Mini Bag 100 ML IVP SCH (10:10)
[2020-09-04] MEDS: Cholecalciferol (D-3) 1,000 UNIT (25MCG) TABLET PO SCH (10:11)
[2020-09-04] MEDS: atenoloL 25 MG TABLET PO SCH (10:11)
[2020-09-04] MEDS: Lactulose Oral Soln 20 GM/30 ML UDC PO SCH (10:12)
[2020-09-04 10:32] LABS: Platelet Count 89 K/mcL (140-400)
[2020-09-04 10:48] LABS: Anisocytosis 2+ (Not Present); Monocytes # 1.3 K/mcL (0.0-1.3); Neutrophils # 10.8 K/mcL (1.6-8.9); Poikilocytosis 1+ (Not Present); Polychromasia 1+ (Not Present); Toxic Granulation Present (Not Present)
[2020-09-04 10:49] LABS: Platelet Estimate Decreased (Normal)
[2020-09-04] MEDS ORDERED: 0.9 % Sodium Chloride w KCl 40 MEQ/1,000 ML MLS IVC SCH (11:45)
[2020-09-04 12:21] LABS: Alanine Aminotransferase 38 Units/L (7-52); Albumin 2.3 g/dL (3.5-5.7); Albumin/Globulin Ratio 0.6 (1.1-2.2); Alkaline Phosphatase 116 Units/L (34-104); Aspartate Amino Transferase 83 Units/L (13-39); Bilirubin,Direct 14.1 mg/dL (0.0-0.2); Bilirubin,Total 23.1 mg/dL (0.3-1.0); Globulin 3.7 g/dL (2.4-3.5)
[2020-09-04] MEDS: Vancomycin 1,750 MG/517.5 ML IV.SOLN IVPB SCH (13:11)
[2020-09-04] MEDS ORDERED: Piperacillin/Tazobactam 3.375 GM in 0.9 % Sodium Chloride Mini Bag 100 ML IVPB SCH (16:00)
== END 2020-09-04 19:51 | disposition short-term general hospital (02) | DRG 441 ==
LOC: 3ANU 13:39 → EMEROOARM 13:39 → SUATTDRO 17:05 → 3ANU 18:20 → SUATTDRO 09-03 09:34
PROVIDERS: ADMIT Internal Medicine; ATTEND Pharmacist